=== PATIENT | male | born 1950 | race Caucasian/White ===

== ENCOUNTER 2016-10-14 07:37 | Inpatient (IN) | payer OTHER, MEDICARE ==
[~2016-10-14] VITALS: Ht 162.6 cm; Wt 77.9 kg
[~2016-10-14 07:37] MED LIST: ASPI81 PO; BACT800T5 PO; CLEO300C2 PO; ENAL20TA81 PO; LANTUSP SQ; METF-324 PO; METO50TA PO; NOVOLOGP2 SQ; ZOCO40TA PO; ZOLP10TA3 OR
[2016-10-14] MEDS ORDERED: NS 1000P @30 MLS/HR (KVO) IV SCH (08:00)
[2016-10-14] MEDS ORDERED: PANT40TA3 PO (08:13)
[2016-10-14] MEDS ORDERED: ZOLP10TA3 PO (08:13)
[2016-10-14] MEDS ORDERED: ENAL20TA PO (08:13)
[2016-10-14] MEDS ORDERED: SITA50TA4 PO (08:13)
[2016-10-14] MEDS ORDERED: NOVOLOGP2 SQ (08:13)
[2016-10-14] MEDS ORDERED: EMPA1TAB3 PO (08:13)
[2016-10-14] MEDS ORDERED: HYDR12.57 PO (08:13)
[2016-10-14] MEDS ORDERED: ASPI81TA81 (08:13)
[2016-10-14] MEDS ORDERED: ROSU1TAB10 PO (08:13)
[2016-10-14] MEDS ORDERED: METO100T PO (08:13)
[2016-10-14] MEDS ORDERED: CELE200C PO (08:13)
[2016-10-14] MEDS ORDERED: LANTUS2P SQ (08:13)
[2016-10-14 08:14] VITALS: BP 152/103; PULSE 103; RESP 18; TEMP 98.2; O2SAT 99
[2016-10-14 08:28] LABS: AUTOMATED NEUTROPHIL # 8.5 TH/MM3 (1.8-7.7); BASOPHIL % 0.2 % (0.0-2.0); EOSINOPHIL # 0.2 TH/MM3 (0-0.4); EOSINOPHIL % 1.3 % (0.0-4.0); HEMATOCRIT 39.6 % (39.0-51.0); HEMO FLAGS DIFF FINAL; LYMPHOCYTE # 1.7 TH/MM3 (1.0-4.8); MEAN CELL VOLUME 85.8 FL (80.0-100.0); MEAN CORPUSCULAR HEMOGLOBIN 28.4 PG (27.0-34.0); MEAN CORPUSCULAR HGB CONC 33.1 % (32.0-36.0); MONO % 9.9 % (0.0-8.0); NEUT % 73.6 % (16.0-70.0); PLATELET COUNT 254 TH/MM3 (150-450); RED BLOOD COUNT 4.62 MIL/MM3 (4.50-5.90); WHITE BLOOD COUNT 11.6 TH/MM3 (4.0-11.0)
[2016-10-14 08:35] LABS: APTT (PATIENT) 28.1 SEC (24.3-30.1); INTERNATIONAL NORMALIZED RATIO 0.9 RATIO; PROTHROMBIN TIME - PATIENT 10.4 SEC (9.8-11.6)
[2016-10-14 08:41] LABS: BICARBONATE 33.3 MEQ/L (21.0-32.0); POTASSIUM 4.1 MEQ/L (3.5-5.1)
[2016-10-14] MEDS ORDERED: HEPARIN-NS/PF INJ 500 ML ONE (09:02)
[2016-10-14] MEDS ORDERED: MIDAZOLAM HCL 2 MG/2 ML VIAL ONE (09:03)
[2016-10-14] MEDS ORDERED: HEPARIN SODIUM - IV 10,000 UNITS/10 ML VIAL ONE (09:04)
[2016-10-14] MEDS ORDERED: NITROGLYCERIN INJ 5 ML ONE (09:04)
[2016-10-14] MEDS ORDERED: VERAPAMIL HCL 5 MG/2 ML VIAL ONE (09:04)
[2016-10-14] MEDS ORDERED: MIDAZOLAM HCL 2 MG/2 ML VIAL IV ONE (09:26)
[2016-10-14] MEDS ORDERED: PHENYLEPHRINE HCL 10 MG/ML VIAL ONE ×2 (09:32)
[2016-10-14] MEDS ORDERED: PHENYLEPH/NS 1000 MCG/10 ML SYR ONE (09:32)
[2016-10-14] MEDS ORDERED: PHENYLEPH/NS 1000 MCG/10 ML SYR IVP ONE (09:33)
[2016-10-14] MEDS ORDERED: ONDANSETRON HCL 4 MG/2 ML VIAL ONE (09:36)
[2016-10-14] MEDS ORDERED: ONDANSETRON HCL 4 MG/2 ML VIAL IV PUSH ONE (09:37)
[2016-10-14] MEDS ORDERED: HEPARIN-D5W INJ 250 ML ONE (09:51)
[2016-10-14] MEDS: SODIUM CHLOR 0.9% 1000 ML INJ 1,000 ML IV SCH ×2 (10:06→20:06)
[2016-10-14] MEDS ORDERED: MISC INFORMATION XX ONE (10:15)
[2016-10-14] MEDS ORDERED: HEPARIN-D5W INJ 250 ML IV SCH (10:15)
[2016-10-14] MEDS ORDERED: SODIUM CHLORIDE 0.9% FLUSH 10 ML FLUSH IV FLUSH PRN (10:15)
[2016-10-14] MEDS ORDERED: ceFAZolin 2 GM PREMIX 50 ML IV SCH (11:00)
[2016-10-14] MEDS ORDERED: INSULIN REGULAR (IV INFUSION) 100 UNITS in SODIUM CHLORIDE 0.9% INJ 100 ML IV SCH (11:00)
[2016-10-14] MEDS ORDERED: METOPROLOL TARTRATE 25 MG TAB PO SCH (11:00)
[2016-10-14] MEDS ORDERED: PAPAVERINE INJ 60 MG, NITROGLYCERIN INJ 100 MCG, DILTIAZEM INJ 100 MG in SODIUM CHLORID... IRRIGATION SCH (11:00)
[2016-10-14] MEDS ORDERED: CEFAZOLIN INJ 500 MG in SODIUM CHLORIDE 0.9% IRR BTL 500 ML IRRIGATION SCH (11:00)
[2016-10-14] MEDS ORDERED: CHLORHEXIDINE GLUCONATE 4% SOLN 120 ML BTL TOPICAL SCH (11:00)
[2016-10-14] MEDS ORDERED: SODIUM CHLORIDE 0.9% FLUSH 10 ML FLUSH IVF PRN (11:00)
[2016-10-14] MEDS ORDERED: PILL SPLITTER OTHER PRN (11:30)
--- NOTE | 2016-10-14 12:09 | RADRPT ---
EXAM DATE/TIME: 10/14/2016 11:09 [facility] COMPARISON: No previous studies available for comparison. INDICATIONS : Evaluate for pneumonia, pneumothorax or communicable disease. Preop cabg today or tomorrow. MEDICAL HISTORY : Myocardial infarction. SURGICAL HISTORY : Coronary artery stent. ENCOUNTER: Initial ACUITY: 1 day PAIN SCORE: 0/10 LOCATION: Bilateral chest FINDINGS: A single view of the chest demonstrates a lumpy symmetrically aerated. Minimal atelectatic changes ab ove the right hemidiaphragm. Lungs are otherwise clear without effusion. Heart size is normal. Mild d extroscoliosis of the thoracolumbar spine with associated degenerative spurring. CONCLUSION: Minimal atelectatic changes above the right hemidiaphragm. Lungs otherwise clear. Ashu Martin MD on October 14, 2016 at 12:05 Board Certified Radiologist. This report was verified electronically.
--- NOTE | 2016-10-14 12:17 | MH ---
cc: NAKUL MENCHACA JOHN R. D.O. HORENSTEIN,GABRIEL Farnsworth MD DATE OF ADMISSION: 10/14/[address] Kt Nova. 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 Gabriel Gant. REASON FOR ADMISSION Multivessel coronary artery disease. HISTORY OF PRESENT ILLNESS Patricio Beach is a pleasant 66-year-old male who presented to [facility] for elective cardiac catheterization on October 14, 2016. He was originally scheduled to undergo a colonoscopy due to an outpatient hemoccult test being positive. After seeing Dr. Gant it was decided he should undergo pharmacologic nuclear stress testing which showed a moderate area of ischemia in the inferior lateral portion. Because of this he was recommended cardiac catheterization. In speaking to him he originally stated that he had no symptoms but after further questioning it appears that he has heartburn type symptoms related to activity and not to food. It appears this burning goes away with rest and relaxation. During cardiac catheterization he was found to have multivessel disease with significant lesions in his RCA, left main, LAD and diagonal vessels. Because of this he was recommended to be admitted for consideration of CT surgery. Currently he is hemodynamically stable without chest pain or shortness of breath post cardiac catheterization. PAST MEDICAL HISTORY 1. Coronary artery disease. 2. Mild carotid artery stenosis by Doppler (February 2012). 3. Type 2 diabetes mellitus. 4. Hyperlipidemia. 5. Hypertensive heart disease. 6. Chronic kidney disease. 7. Obesity. 8. History of prostate cancer. PAST SURGICAL HISTORY 1. Cardiac catheterization (October 14, 2016) left main 80-90%, proximal LAD 60%, mid-LAD 90%, diagonal 70%, left circ/OM 30%, subtotal RCA with multiple 100% lesions, ramus 50%. 2. Previous cardiac catheterization with two stents placed in the RCA. ALLERGIES NO KNOWN DRUG ALLERGIES. MEDICATIONS 1. Enalapril 20 mg daily. 2. Ambien 10 mg every night for insomnia. 3. Metoprolol tartrate 100 mg b.i.d. 4. Janumet XR mg. 5. Crestor 40 mg daily. 6. NovoLog sliding scale. 7. Lantus 25 units every night. 8. Aspirin 81 mg daily. 9. Celebrex 200 mg b.i.d. 10. Protonix 40 mg daily. 11. Jardiance 25 mg daily. 12. Hydrochlorothiazide 12.5 mg b.i.d. FAMILY HISTORY Known for a history of cerebrovascular accidents and heart disease. He denies premature coronary artery disease or sudden cardiac within the family. SOCIAL HISTORY The patient drinks alcohol socially. He is currently and lives with his and stepson. Previously used tobacco but denies recent tobacco abuse. REVIEW OF SYSTEMS 14-systems were reviewed including osteopathic, pertinent positives and negatives above, otherwise negative. PHYSICAL EXAMINATION VITAL SIGNS: Temperature 98.2, heart rate 78, blood pressure 142/75, respirations 18, pulse ox 99% on room air. GENERAL: In general the patient appears well, in no acute distress, alert, awake and oriented x3. HEENT: Extraocular muscles intact. Mucous membranes moist. NECK: Neck is supple. No JVD at 45 degrees. No carotid bruits heard bilaterally. Carotid upstroke is brisk in nature. HEART: Heart is regular rate and rhythm. Positive first and second heart sounds with a 1/6 crescendo-decrescendo murmur to the right sternal border. LUNGS: Clear to auscultation bilaterally. No wheezes, rales or rhonchi. ABDOMEN: Soft, nontender, nondistended. No organomegaly noted. EXTREMITIES: Show no clubbing, cyanosis or edema. Right radial currently has TR band around it with no hematoma. NEUROLOGIC: No focal deficits. SKIN: Warm, dry and intact. OSTEOPATHIC: No kyphoscoliosis, lordosis or paraspinal tender points. LABORATORY FINDINGS Hemoglobin 13.1, hematocrit 39.6, platelets 254. INR 0.9. Potassium 4.1, BUN 22, creatinine 1.82. ECHOCARDIOGRAM Echocardiogram (September 18, 2016) ejection fraction 60%, mild concentric LVH, stage I diastolic dysfunction. Aortic valve mildly calcified (peak gradient 24, mean gradient 14). Trace mitral regurgitation. IMPRESSION 1. Multivessel coronary artery disease as above. 2. Ejection fraction 60%, mild aortic stenosis (peak gradient 24, mean gradient 14) by echocardiogram (September 18, 2016). 3. Chronic kidney disease. 4. Mild carotid artery disease by Doppler (February 2012). 5. Type 2 diabetes mellitus. 6. Hyperlipidemia. 7. Hypertensive heart disease. 8. Obesity. 9. History of prostate cancer. RECOMMENDATIONS 1. Mr. Beach appears to have multivessel coronary artery disease with significant left main disease. Because of this he was recommended for CT surgery. 2. I spoke to Patricia from CT surgery and consideration will be made for possibly today versus tomorrow for surgery based on his current workup. 3. Balloon pump was not placed as he is currently hemodynamically stable with no chest pain or shortness of breath. At anytime before surgery, if this does change, consideration could be made for placing balloon pump preoperatively. 4. He will have his Janumet, Enalapril and Celebrex held presurgical. As far as his Janumet goes this may need to be changed due to being on metformin with his creatinine above 1.5 but that will be for the primary care team. 5. We will place him on metoprolol tartrate but at a lower dose as we do not want him to be hypotensive before surgery. 6. Further recommendations will be made based on hospital course. Thank you for allowing me to see Patricio Beach, if there are any questions, please do not hesitate to call. Nakul Menchaca DO VGP/TLL /11:30 AM /11:51 AM
[2016-10-14] MEDS ORDERED: IOHEXOL 350 MG/ML 100 ML BTL (for Cath Lab) OTHER ONE (12:42)
--- NOTE | 2016-10-14 13:40 | MA ---
cc: NAKUL MENCHACA JOHN R. D.O. HORENSTEIN,GABRIEL Farnsworth MD DATE: October 14, [address] Kt Nova. PRIMARY ORNAMENTAL METALWORK DESIGNER Dr. Gabriel Gant. PROCEDURE Left heart catheterization, coronary angiogram, moderate sedation 15 minutes. PREPROCEDURE DIAGNOSIS Atypical chest pain, abnormal stress test. POSTPROCEDURE DIAGNOSIS Multivessel coronary artery disease for consideration of coronary artery bypass grafting. CONTRAST USED 50 ccs. FLUOROSCOPY 3.7 minutes. SEDATION Moderate sedation for 15 minutes. PROCEDURAL SUMMARY Patricio Beach is a pleasant 66-year-old male who underwent pharmacologic nuclear stress test in the outpatient setting for preoperative clearance for colonoscopy. During this he was found to have inferolateral moderate-sized defect and recommended cardiac catheterization. In speaking to him he states that he has heartburn with activity that goes away with rest, which is felt to be his anginal equivalent. Risks, benefits and alternatives were explained to him and he consented as such. He was brought to the cardiac catheterization lab and prepped in the usual sterile fashion. Right radial artery was accessed using a modified Seldinger technique and placement of a 5/6 slender sheath. This was easily aspirated and flushed. A JR-4 was then advanced to the ascending aortic root over a J-wire. At this time the patient stated that he started feeling nauseous and forging die sinker sensation. JR-4 was used to cross the aortic valve and left ventricular pressures were found to be systolically 60 with an LVEDP of 11. This was pulled back across the aortic valve showing no significant gradient of aortic stenosis. Mr. Beach was noted to be hypotensive and nauseous. He was given 50 of meredith for which his blood pressure responded but at that time he had an episode of emesis. After this his blood pressure was 100/60 and he felt better. JR-4 was used for selective angiography of the right coronary artery which shows subtotal occlusion with multiple lesions throughout the mid and distal portions within his previous stents. JR-4 was then exchanged for a JL-3.5 which was used for selective angiography of the left coronary system. Left main is normal in size and tapers distally to an 80-90% lesion right before it trifurcates into the LAD, ramus and left circumflex. The LAD proximally has a 50-60% lesion with the midportion having a 90% lesion at the takeoff of the first diagonal. Distally it appears to have good runoff. The first diagonal has a 70% lesion in the proximal portion. The ramus is a normal-appearing vessel with a 60% lesion in the proximal portion. The left circumflex is a normal-appearing vessel with 30% lesion in the proximal to midportion. The left coronary system does supply etgt-yo-swrue collaterals for the PDA. At this point the JL-3.5 was removed over a J-wire. I did discuss the case at this time with Patricia from CT surgery and it was felt that he could undergo coronary artery bypass grafting either today or tomorrow as he has not had further antiplatelets other than aspirin. At this time it was felt that he was hemodynamically stable with a blood pressure systolically of 120-140, no chest pain or shortness of breath. So decision was made not to place a intraaortic balloon pump. Mr. Beach left the computer lab aide cardiovascularly stable. IMPRESSION 1. Multivessel coronary artery disease as above for possible coronary artery bypass grafting. 2. Angina with exertion. 3. Abnormal pharmacologic nuclear stress test. 4. Preoperative risk assessment for possible colonoscopy. 5. Chronic kidney disease. RECOMMENDATIONS 1. Mr. Beach has significant multivessel coronary artery disease and due to this will plan on possible coronary artery bypass grafting. Case was discussed with Patricia from cardiothoracic surgery who will start the workup for possible CABG. 2. He does have significant left main disease and if at any time he starts to have chest pain or becomes hemodynamically unstable then further left ventricular support should be placed. 3. He will be placed on a heparin drip due to his significant coronary artery disease. 4. Further recommendations will be made based on the hospital course. Thank you for allowing me to see Patricio Beach, if there are any questions, please do not hesitate to call. Nakul Menchaca DO VGP/TLL /12:59 PM /1:20 PM
--- NOTE | 2016-10-14 14:17 | RADRPT ---
EXAM DATE/TIME: 10/14/2016 12:55 [facility] COMPARISON: No previous studies available for comparison. INDICATIONS : Pre Op cardiac surgery. MEDICAL HISTORY : Hypercholesterolemia. Chronic obstructive pulmonary disease. Myocardial infarction. Hypertension. Julia betes. Prostate cancer. SURGICAL HISTORY : Coronary artery stent. Vasectomy. ENCOUNTER: Initial ACUITY: 1 day PAIN SCORE: 0/10 LOCATION: Bilateral neck PEAK SYSTOLIC VELOCITIES (cm/sec): ICA/CCA RATIO: Right: 1.0 Left: 0.6 ICA: Right: 98 Left: 75 CCA: Right: 102 Left: 119 ECA: Right: 76 Left: 194 VERTEBRAL: Right: 53 antegrade Left: 56 antegrade Elevated flow velocities and ICA/CCA ratios have been found to correlate with increased degrees of vessel stenosis, calculated as percentage of diameter relative to a normal segment of distal ICA/CCA FINDINGS: RIGHT CAROTID: Dense atherosclerotic plaquing throughout the right carotid system. The waveforms are within normal limits. LEFT CAROTID: Dense atherosclerotic plaquing throughout the left carotid system, most severe in the distal common. The waveforms are within normal limits. VERTEBRAL ARTERIES: Antegrade flow is seen in both vertebral arteries. MISCELLANEOUS: None. CONCLUSION: 1. Dense atherosclerotic plaquing throughout both carotid systems. 2. This is most severe in the distal left common carotid artery were velocities approach 150 cm/s. Th is may be indicative of a moderate stenosis in this region. No significant stenosis identified in the internal carotid arteries. Antegrade flow in both vertebrals. Ashu Martin MD on October 14, 2016 at 14:11 Board Certified Radiologist. This report was verified electronically.
--- NOTE | 2016-10-14 15:03 | RADRPT ---
EXAM DATE/TIME: 10/14/2016 13:11 [facility] COMPARISON: US CAROTID ARTERIES, October 14, 2016, 12:55. INDICATIONS : Pre Op cardiac surgery. MEDICAL HISTORY : Hypercholesterolemia. Chronic obstructive pulmonary disease. Myocardial infarction. Hypertension. Julia betes. Prostate cancer. SURGICAL HISTORY : Coronary artery stent. Vasectomy. ENCOUNTER: Initial ACUITY: 1 day PAIN SCORE: 0/10 LOCATION: Bilateral legs. TECHNIQUE: Venous ultrasound of the left and right leg was performed from the inguinal ligament to the proximal calf. Real-time, color Doppler and spectral tracing, compression and augmentation techniques were us ed. FINDINGS: RIGHT LEG: There is normal compressibility of the deep venous system from the inguinal region to the proximal ca lf. No echogenic clot is seen in the lumen of the common femoral, femoral, popliteal, and posterior tibial veins. There is a normal response of the venous system to proximal and distal augmentation an d respiration. LEFT LEG: There is normal compressibility of the deep venous system from the inguinal region to the proximal ca lf. No echogenic clot is seen in the lumen of the common femoral, femoral, popliteal, and posterior tibial veins. There is a normal response of the venous system to proximal and distal augmentation an d respiration. CONCLUSION: 1. No DVT identified. Jamari Camejo MD on October 14, 2016 at 15:00 Board Certified Radiologist. This report was verified electronically.
--- NOTE | 2016-10-14 15:12 | PD.CAR.PN ---
CVT Progress Note Subjective/Hospital Course: sts data discussed with pt RISK SCORES About the STS Risk Calculator Procedure: CAB Only Risk of Mortality: 1.829% Morbidity or Mortality: 19.801% Long Length of Stay: 7.82% Short Length of Stay: 35.958% Permanent Stroke: 1.302% Prolonged Ventilation: 11.088% DSW Infection: 0.777% Renal Failure: 8.856% Reoperation: 6.46% Objective: Vital Signs Date Time Temp Pulse Resp B/P Pulse Ox O2 Delivery O2 Flow Rate FiO2 10/14/16 10:21 99 10/14/16 08:14 98.2 103 18 152/103 99 Labs: Laboratory Tests Test 10/14/16 08:05 White Blood Count 11.6 TH/MM3 (4.0-11.0) Red Blood Count 4.62 MIL/MM3 (4.50-5.90) Hemoglobin 13.1 GM/DL (13.0-17.0) Hematocrit 39.6 % (39.0-51.0) Mean Corpuscular Volume 85.8 FL (80.0-100.0) Mean Corpuscular Hemoglobin 28.4 PG (27.0-34.0) Mean Corpuscular Hemoglobin 33.1 % Concent (32.0-36.0) Red Cell Distribution Width 15.0 % (11.6-17.2) Platelet Count 254 TH/MM3 (150-450) Mean Platelet Volume 8.2 FL (7.0-11.0) Neutrophils (%) (Auto) 73.6 % (16.0-70.0) Lymphocytes (%) (Auto) 15.0 % (9.0-44.0) Monocytes (%) (Auto) 9.9 % (0.0-8.0) Eosinophils (%) (Auto) 1.3 % (0.0-4.0) Basophils (%) (Auto) 0.2 % (0.0-2.0) Neutrophils # (Auto) 8.5 TH/MM3 (1.8-7.7) Lymphocytes # (Auto) 1.7 TH/MM3 (1.0-4.8) Monocytes # (Auto) 1.2 TH/MM3 (0-0.9) Eosinophils # (Auto) 0.2 TH/MM3 (0-0.4) Basophils # (Auto) 0.0 TH/MM3 (0-0.2) CBC Comment DIFF FINAL Differential Comment Prothrombin Time 10.4 SEC (9.8-11.6) Prothromb Time International 0.9 RATIO Ratio Activated Partial 28.1 SEC Thromboplast Time (24.3-30.1) Sodium Level 141 MEQ/L (136-145) Potassium Level 4.1 MEQ/L (3.5-5.1) Chloride Level 101 MEQ/L (98-107) Carbon Dioxide Level 33.3 MEQ/L (21.0-32.0) Anion Gap 7 MEQ/L (5-15) Blood Urea Nitrogen 22 MG/DL (7-18) Creatinine 1.82 MG/DL (0.60-1.30) Estimat Glomerular Filtration 37 ML/MIN (>89) Rate Random Glucose 165 MG/DL (74-106) Calcium Level 9.0 MG/DL (8.5-10.1) Result Diagram: 10/14/16 0805 10/14/16 0805 Maira Valverde Oct 14, 2016 15:12
[2016-10-14 15:39] VITALS: PULSE 86
[2016-10-14 16:00] VITALS: BP 128/68; PULSE 103; RESP 18; TEMP 98; O2SAT 99
--- NOTE | 2016-10-14 16:00 | RADRPT ---
EXAM DATE/TIME: 10/14/2016 13:17 [facility] COMPARISON: No previous studies available for comparison. INDICATIONS : Pre Op cardiac surgery. MEDICAL HISTORY : Hypercholesterolemia. Chronic obstructive pulmonary disease. Myocardial infarction. Hypertension. Julia betes. Prostate cancer. SURGICAL HISTORY : Coronary artery stent. Vascetomy. ENCOUNTER: Initial ACUITY: 1 day PAIN SCORE: 0/10 LOCATION: Bilateral legs. GREATER SAPHENOUS VEIN THIGH: PROXIMAL: Right 4 mm Left 5 mm MID: Right 2 mm Left 2 mm DISTAL: Right Non-visualized Left 2 mm CALF: PROXIMAL: Right Non-visualized Left Non-visualized MID: Right Non-visualized Left Non-visualized DISTAL: Right Non-visualized Left Non-visualized FINDINGS: The venous system of the lower extremities are patent by color Doppler imaging. Measurements of the leg veins (in mm) are listed above. CONCLUSION: 1. Greater saphenous vein below the knee are extremely diminutive and difficult to follow. 2. Above the knee, the right greater saphenous measures 2-4 mm but could not be seen just above the k nee joint. 3. On the left, greater saphenous measures between 2-5 mm above the knee. Ashu Martin MD on October 14, 2016 at 15:57 Board Certified Radiologist. This report was verified electronically.
[2016-10-14] MEDS ORDERED: HEPARIN SODIUM - IV 10,000 UNITS/10 ML VIAL IV PRN ×2 (16:15)
[2016-10-14] MEDS ORDERED: NITROGLYCERIN 1000 MCG/5 ML VIAL OTHER ONE (16:30)
[2016-10-14] MEDS ORDERED: VERAPAMIL HCL 5 MG/2 ML VIAL OTHER ONE (16:30)
[2016-10-14] MEDS ORDERED: HEPARIN SODIUM - IV 10,000 UNITS/10 ML VIAL OTHER ONE (16:30)
[2016-10-14 17:00] LABS: HEMATOCRIT 37.5 % (39.0-51.0); MEAN CELL VOLUME 86.1 FL (80.0-100.0); MEAN CORPUSCULAR HEMOGLOBIN 27.9 PG (27.0-34.0); MEAN CORPUSCULAR HGB CONC 32.4 % (32.0-36.0); PLATELET COUNT 219 TH/MM3 (150-450); RED BLOOD COUNT 4.35 MIL/MM3 (4.50-5.90); RED CELL DISTRIBUTION WIDTH 14.7 % (11.6-17.2); REVIEW FLAG FINAL; WHITE BLOOD COUNT 10.5 TH/MM3 (4.0-11.0)
[2016-10-14 17:10] LABS: APTT (PATIENT) 37.9 SEC (24.3-30.1)
[2016-10-14 17:11] LABS: HEMOGLOBIN A1a 1.6 %; HEMOGLOBIN A1b 2.6 %; HEMOGLOBIN LA1C 2.6 %
[2016-10-14] MEDS: ALPRAZolam 0.25 MG TAB PO PRN (18:15)
[2016-10-14 19:00] VITALS: BP 141/84; PULSE 96; RESP 18; TEMP 98.2; O2SAT 93
[2016-10-14 19:17] LABS: BLOOD, URINE NEG (NEG); COMMENT (UR) CULT NOT INDICATED; CULTURE IF INDICATED CULT NOT INDICATED; GLUCOSE,URINE 1000 mg/dL (NEG); KETONE, URINE NEG (NEG); MUCUS URINE FEW /lpf (OCC); NITRITE,URINE NEG (NEG); PH, URINE 5.5 (5.0-8.5); URINE COLOR LIGHT-YELLOW (YELLW/STRAW)
[2016-10-14] MEDS: SODIUM CHLORIDE 0.9% FLUSH 10 ML FLUSH IV FLUSH SCH (21:00)
[2016-10-14] MEDS ORDERED: SODIUM CHLORIDE 0.9% FLUSH 10 ML FLUSH IVF SCH (21:00)
[2016-10-14] MEDS ORDERED: INSULIN DETEMIR 100 UNITS/ML VIAL SQ SCH (21:00)
[2016-10-14] MEDS: METOPROLOL TARTRATE 25 MG TAB PO SCH (22:11)
[2016-10-14 23:00] VITALS: BP 142/79; PULSE 83; RESP 18; TEMP 97.9; O2SAT 96
[2016-10-15] VITALS (10 sets, daily range): BP systolic 130–160; BP diastolic 65–87; PULSE 86–111; RESP 12–18; TEMP 97.7–98.3; O2SAT 91–98
[2016-10-15] MEDS: ALPRAZolam 0.25 MG TAB PO PRN ×2 (01:00→08:08)
[2016-10-15 03:42] LABS: AUTOMATED NEUTROPHIL # 9.1 TH/MM3 (1.8-7.7); BASOPHIL # 0.1 TH/MM3 (0-0.2); BASOPHIL % 0.5 % (0.0-2.0); EOSINOPHIL # 0.1 TH/MM3 (0-0.4); EOSINOPHIL % 1.2 % (0.0-4.0); HEMATOCRIT 35.9 % (39.0-51.0); HEMO FLAGS DIFF FINAL; LYMPH % 15.2 % (9.0-44.0); LYMPHOCYTE # 1.9 TH/MM3 (1.0-4.8); MEAN CELL VOLUME 85.6 FL (80.0-100.0); MEAN CORPUSCULAR HEMOGLOBIN 28.3 PG (27.0-34.0); MEAN CORPUSCULAR HGB CONC 33.1 % (32.0-36.0); MONO % 9.2 % (0.0-8.0); NEUT % 73.9 % (16.0-70.0); PLATELET COUNT 226 TH/MM3 (150-450); RED BLOOD COUNT 4.19 MIL/MM3 (4.50-5.90); RED CELL DISTRIBUTION WIDTH 15.4 % (11.6-17.2); WHITE BLOOD COUNT 12.3 TH/MM3 (4.0-11.0)
[2016-10-15 04:05] LABS: BICARBONATE 30.1 MEQ/L (21.0-32.0); POTASSIUM 3.9 MEQ/L (3.5-5.1)
[2016-10-15] MEDS ORDERED: PROTAMINE SULFATE 250 MG/25 ML VIAL IV ONE (05:00)
[2016-10-15] MEDS ORDERED: HEPARIN SODIUM - SQ 10,000 UNITS/ML VIAL SQ ONE (05:00)
[2016-10-15] MEDS ORDERED: ceFAZolin 2 GM PREMIX 50 ML IV ONE (05:00)
[2016-10-15] MEDS ORDERED: NITROGLYCERIN-DEXTROSE INJ 250 ML IV ONE (05:00)
[2016-10-15] MEDS ORDERED: DEXMEDETOMIDINE INJ 50 ML IV ONE (05:00)
[2016-10-15] MEDS ORDERED: DEXTROSE 5% IN WATER 100ML INJ 100 ML IV ONE (05:00)
[2016-10-15] MEDS ORDERED: EPINEPHrine HCL (1:1000) 1 MG/ML VIAL IV ONE (05:00)
[2016-10-15] MEDS ORDERED: PHENYLEPHRINE HCL 10 MG/ML VIAL IV ONE (05:00)
[2016-10-15] MEDS ORDERED: PROPOFOL 1000 MG/100 ML INJ 100 ML IV ONE (05:00)
[2016-10-15] MEDS ORDERED: DOPamine INJ PREMIX 500 ML IV ONE (05:00)
[2016-10-15] MEDS ORDERED: MAGNESIUM SULFATE 1000 MG/2 ML VIAL (PED) IV ONE (05:00)
[2016-10-15] MEDS ORDERED: HEPARIN SODIUM - SQ 10,000 UNITS/ML VIAL ONE (07:34)
[2016-10-15] MEDS ORDERED: VANCOMYCIN HCL 1000 MG VIAL ONE (07:34)
[2016-10-15] MEDS ORDERED: methylPREDNISolone SOD SUCC 125 MG/2 ML VIAL ONE (07:34)
[2016-10-15] MEDS ORDERED: CARDIOPLEGIC IRR 1,000 ML ONE (07:54)
[2016-10-15] MEDS ORDERED: MANNITOL INJ 50 ML ONE (07:54)
[2016-10-15] MEDS ORDERED: SODIUM BICARBONATE 8.4% INJ 50 ML ONE (07:54)
[2016-10-15] MEDS ORDERED: POTASSIUM CHLORIDE 20 MEQ/10 ML VIAL ONE (07:55)
[2016-10-15] MEDS ORDERED: ALBUMIN HUMAN 25% 12.5 GM/50 ML BAGP IV ONE (07:55)
[2016-10-15] MEDS ORDERED: CALCIUM CHLORIDE 10% SOLN 1 GRAM/10 ML SYR ONE (07:56)
[2016-10-15] MEDS: METOPROLOL TARTRATE 25 MG TAB PO SCH (08:10)
--- NOTE | 2016-10-15 08:28 | EKG ---
Date Performed: 10/14/2016 Time Performed: 08:11:50 PTAGE: 66 years EKG: Sinus rhythm Left axis deviation Inferior infarct - age undetermined Abnormal ECG PREVIOUS TRACING : 01/15/2012 15.29 DOCTOR: Jean Carlos Calhoun Interpretating Date/Time 10/15/2016 08:25:45
[2016-10-15] MEDS: ATORVASTATIN 80 MG TAB PO SCH (09:00)
[2016-10-15] MEDS: SODIUM CHLORIDE 0.9% FLUSH 10 ML FLUSH IV FLUSH SCH ×2 (09:00→21:00)
[2016-10-15] MEDS ORDERED: PANTOPRAZOLE SOD 40 MG DELAYED RELEASE TAB PO SCH (09:00)
[2016-10-15] MEDS ORDERED: NON-FORMULARY DRUG (Sitagliptin-Metformin ER (Janumet Xr) 1 TAB) PO SCH (09:00)
[2016-10-15] MEDS: PATIENT OWN MEDICATION PO SCH (09:00)
[2016-10-15] MEDS ORDERED: ASPIRIN EC 81 MG TABEC PO SCH (09:00)
--- NOTE | 2016-10-15 09:03 | PD.CARD.PN ---
Subjective Subjective Remarks No chest pain, no shortness of breath, anxious For CABG this morning Objective Medications Current Medications Medications (Trade) Dose Ordered Sig/Phoebe Route Start Time Stop Time Status Last Admin (Heparin Inj) 5,000 units UNSCH PRN IV 10/14/16 16:15 Heparin Sodium (Porcine) 2500 units 2,500 units UNSCH PRN IV 10/14/16 16:15 (Heparin-D5W Inj) 250 ml @ 0 mls/hr TITRATE IV 10/14/16 10:15 (NS Flush) 2 ml BID IV FLUSH 10/14/16 21:00 10/14/16 21:00 (NS Flush) 2 ml UNSCH PRN IV FLUSH 10/14/16 10:15 (Ecotrin Ec) 81 mg DAILY PO 10/15/16 09:00 (Levemir Inj) 25 units HS SQ 10/14/16 21:00 10/14/16 21:00 (Protonix) 40 mg DAILY PO 10/15/16 09:00 Patient Own Medication PT OWN MED: (Empagliflozin (Jardian... DAILY PO 10/15/16 09:00 (Lipitor) 80 mg DAILY PO 10/15/16 09:00 (Lopressor) 12.5 mg Q12HR PO 10/14/16 21:00 10/15/16 08:10 (Pill Splitter) 1 ea UNSCH PRN OTHER 10/14/16 11:30 (Xanax) 0.25 mg Q8H PRN PO 10/14/16 16:00 10/15/16 08:08 Vital Signs / I&O Vital Signs Date Time Temp Pulse Resp B/P Pulse Ox O2 Delivery O2 Flow Rate FiO2 10/15/16 07:00 97.7 94 17 140/83 93 10/15/16 07:00 94 10/15/16 03:00 98.3 86 18 130/72 94 10/15/16 03:00 86 10/14/16 23:00 97.9 83 18 142/79 96 10/14/16 23:00 83 10/14/16 19:00 96 10/14/16 19:00 98.2 96 18 141/84 93 10/14/16 16:00 98.0 103 18 128/68 99 10/14/16 15:39 86 3/22/17 10:21 99 I/O 10/14/16 10/14/16 10/14/16 10/15/16 10/15/16 10/15/16 07:00 15:00 23:00 07:00 15:00 23:00 Intake Total 240 ml 810 ml 940 ml Output Total 150 ml 350 ml 1350 ml Balance 90 ml 460 ml -410 ml Intake Oral 240 ml 480 ml 420 ml IV Total 330 ml 520 ml Output Urine Total 150 ml 350 ml 1350 ml # Bowel Movements 0 1 Physical Exam GENERAL: NAD, AAOx3 SKIN: Warm and dry. HEAD: Atraumatic. Normocephalic. EYES: Pupils equal and round. No scleral icterus. No injection or drainage. ENT: No nasal bleeding or discharge. Mucous membranes pink and moist. NECK: Trachea midline. No JVD. CARDIOVASCULAR: Regular rate and rhythm. No murmurs noted RESPIRATORY: No accessory muscle use. Clear to auscultation. Breath sounds equal bilaterally. GASTROINTESTINAL: Abdomen soft, non-tender, nondistended. Hepatic and splenic margins not palpable. MUSCULOSKELETAL: Extremities without clubbing, cyanosis, or edema. No obvious deformities. NEUROLOGICAL: Awake and alert. No obvious cranial nerve deficits. Motor grossly within normal limits. Five out of 5 muscle strength in the arms and legs. Normal speech. PSYCHIATRIC: Appropriate mood and affect; insight and judgment normal. Laboratory Laboratory Tests Test 10/14/16 10/14/16 10/14/16 10/14/16 14:00 16:50 17:55 18:11 Blood Type O POSITIVE Antibody Screen NEGATIVE Crossmatch Leukocyte-Reduced Red Blood Cells Blood Bank Comment White Blood Count 10.5 TH/MM3 Red Blood Count 4.35 MIL/MM3 Hemoglobin 12.1 GM/DL Hematocrit 37.5 % Mean Corpuscular Volume 86.1 FL Mean Corpuscular Hemoglobin 27.9 PG Mean Corpuscular Hemoglobin 32.4 % Concent Red Cell Distribution Width 14.7 % Platelet Count 219 TH/MM3 Mean Platelet Volume 8.1 FL Activated Partial 37.9 SEC Thromboplast Time Urine Color LIGHT-YELLOW Urine Turbidity CLEAR Urine pH 5.5 Urine Specific [place] 1.031 Urine Protein NEG mg/dL Urine Glucose (UA) 1000 mg/dL Urine Ketones NEG mg/dL Urine Occult Blood NEG Urine Nitrite NEG Urine Bilirubin NEG Urine Urobilinogen LESS THAN 2.0 MG/DL Urine Leukocyte Esterase NEG Urine RBC 2 /hpf Urine WBC 1 /hpf Urine Mucus FEW /lpf Microscopic Urinalysis Comment CULT NOT INDICATED Nasal Screen MRSA (PCR) NEGATIVE Test 10/15/16 03:28 White Blood Count 12.3 TH/MM3 Red Blood Count 4.19 MIL/MM3 Hemoglobin 11.9 GM/DL Hematocrit 35.9 % Mean Corpuscular Volume 85.6 FL Mean Corpuscular Hemoglobin 28.3 PG Mean Corpuscular Hemoglobin 33.1 % Concent Red Cell Distribution Width 15.4 % Platelet Count 226 TH/MM3 Mean Platelet Volume 8.1 FL Neutrophils (%) (Auto) 73.9 % Lymphocytes (%) (Auto) 15.2 % Monocytes (%) (Auto) 9.2 % Eosinophils (%) (Auto) 1.2 % Basophils (%) (Auto) 0.5 % Neutrophils # (Auto) 9.1 TH/MM3 Lymphocytes # (Auto) 1.9 TH/MM3 Monocytes # (Auto) 1.1 TH/MM3 Eosinophils # (Auto) 0.1 TH/MM3 Basophils # (Auto) 0.1 TH/MM3 CBC Comment DIFF FINAL Differential Comment Sodium Level 143 MEQ/L Potassium Level 3.9 MEQ/L Chloride Level 105 MEQ/L Carbon Dioxide Level 30.1 MEQ/L Anion Gap 8 MEQ/L Blood Urea Nitrogen 23 MG/DL Creatinine 1.57 MG/DL Estimat Glomerular Filtration 44 ML/MIN Rate Random Glucose 151 MG/DL Calcium Level 8.9 MG/DL Assessment and Plan Problem List: (1) Multi-vessel coronary artery stenosis (2) CAD (coronary artery disease) (3) HTN (hypertension) (4) DM (diabetes mellitus) (5) HLD (hyperlipidemia) (6) CKD (chronic kidney disease) (7) Anxiety Assessment and Plan 1) MVCAD with Left Main disease, for CABG today 2) Heparin drip off in anticipation of CABG today 3) Jantoniat held post cath, creatinine somewhat better, will have to see what his baseline is before restarting 4) Would avoid Celebrex long term care phlebotomist with ischemic heart disease 5) Will follow post-op Nakul Valera DO Oct 15, 2016 09:03
--- NOTE | 2016-10-15 09:12 | MB ---
cc: MAREN KNAPP MD DATE OF CONSULTATION: 10/14/2016 1948 HISTORY OF PRESENT ILLNESS A 66-year-old male, a patient of Dr. Kt Nova, Dr. Gant, that apparently was supposed to undergo colonoscopy, he had an outpatient, one of three heme tests was positive and needed to have cardiac clearance for his colonoscopy. He denied ever having any bloody stools, no dark tarry stools. He was to see Dr. Powell as an outpatient. He underwent exercise stress test which was apparently positive. Stress test showed EF of 45-50% with inferior hypokinesis, inferolateral reversibility. The patient underwent cardiac cath today by Dr. Valera which showed 90% left main, proximal LAD 60%, mid distal LAD 90%, diagonal was 70%, the circ was 30%, the OM was 30%, the RCA was subtotally occluded, the ramus was also 50%. During the course of the cardiac cath he became hypotensive requiring 50 mics of Wilfredo-Synephrine and some IV fluids and his EF was found to be 60%. We were consulted for coronary artery bypass grafting. The patient's blood pressure improved after the Wilfredo-Synephrine and did not require an intra-aortic balloon pump at this point, however, if the patient developed any chest pain or further hemodynamic compromise Dr. Valera was going to place an intra-aortic balloon pump. PAST MEDICAL HISTORY At this time the patient's past medical history is significant for: 1. Carotid artery disease. He had some mild bilateral internal carotid stenosis in 2011, coronary artery disease. He has had two stents placed in the past, once up in [place], one at [facility] by Dr. Sofia, the last one was in 2001. 2. Diabetes mellitus. 3. Hyperlipidemia. 4. Hypertension. 5. Insomnia. 6. Prior history of an [place]. 7. Obesity. 8. Prostate cancer with radiation. 9. Syncope. ALLERGIES No known allergies. MEDICATIONS Home medications include: 1. Aspirin 81. 2. Celebrex 200. 3. Enalapril 20. 4. HCTZ 12.5 p.o. daily. 5. He takes Novolin insulin t.i.d. 6. Victoza. 7. Janumet. 8. Jardiance. 9. Metoprolol. 10. Protonix. 11. Crestor 40. 12. Cari durham. for sleep. FAMILY HISTORY Mother from CHF, history of CVA at age 70. Father complications of valve surgery and he had a pacemaker. SOCIAL HISTORY The patient is , seven children. Four of his sons have history of heart disease. No alcohol. He smoked for 35 years two packs, he quit 25 years ago. REVIEW OF SYSTEMS GENERAL: No night sweats, fever, heat and cold intolerance. SKIN: No psoriasis, itching or hives. HEENT: No blurred vision, hearing loss. RESPIRATORY: No cough or shortness of breath. CARDIOVASCULAR: Denies having any chest pain, has had some heartburn with exertion. GASTROINTESTINAL: Positive for occasional heartburn. No nausea, vomiting, diarrhea. GENITOURINARY: No burning, frequency, urgency. 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 ENDOCRINOLOGY: Positive for diabetes. PHYSICAL EXAMINATION VITAL SIGNS: Blood pressure 150/100, heart rate 100, temperature 98.2. GENERAL: The patient is awake, alert, in no acute distress. HEENT: Head is normocephalic, atraumatic. Pupils equal and reactive. Oral mucosa pink, moist. NECK: Supple. No JVD. HEART: Heart sounds S1-S2, regular rate and rhythm. No rubs, murmurs, gallops. LUNGS: Clear to auscultation. No wheezes or rales or rhonchi. ABDOMEN: Soft, nontender. No masses or organomegaly. EXTREMITIES: No cyanosis, clubbing or edema. LABORATORY FINDINGS Shows hemoglobin 13, hematocrit 39, white cell count of 11, platelet count 254, sodium 141, potassium 4.1, BUN 21, creatinine 1.82, baseline was 1.65, INR 0.9. RADIOLOGICAL EXAMINATION Shows carotid ultrasound: Some dense plaquing throughout the carotid system, left common carotid with velocities approaching 150, showing some moderate lesions, will probably need outpatient followup. Other testing includes a chest x-ray: Some mild atelectasis changes, otherwise unremarkable. Lower extremity ultrasound: No DVT. IMPRESSION This is a 66-year-old male with multivessel disease requiring urgent coronary artery bypass grafting, EF of 60%. Procedures, alternatives and risks will be discussed by Dr. Maren Knapp. STS data will be discussed with the patient and then documented in the electronic record. PLAN Plan will be for coronary artery bypass graft in the a.m. Dictated by: SEBLE Hoffman aMren PAYTON/TLL /3:17 PM /9:09 AM
[2016-10-15] MEDS ORDERED: PROTAMINE SULFATE 50 MG/5 ML VIAL ONE (12:30)
[2016-10-15] MEDS ORDERED: LACTATED RINGER'S 1000 ML INJ 500 ML IV PRN (13:16)
--- NOTE | 2016-10-15 13:29 | PD.OP ---
cc: Rohini Kc MD; Nakul Valera DO Operative Report Date of Surgery: Oct 15, 2016 Preoperative Diagnosis: (1) CAD (coronary artery disease) (2) Multi-vessel coronary artery stenosis (3) Unstable angina Postoperative Diagnosis: none Procedure: Urgent CABG x 3 ROACH to LAD SVG to Ramus SVG to PDA EVH Anesthesia: Dr. Arreaga Surgeon: Rohini Kc [employer] Supervisor(s): Guillermo Herrera Operation and Findings: The risks, benefits, complications, treatment options, and expected outcomes were discussed with the patient. The possibilities of reaction to medication, pulmonary aspiration, perforation of viscus, bleeding, recurrent infection, the need for additional procedures, failure to diagnose a condition, and creating a complication requiring transfusion or operation were discussed with the patient. The patient concurred with the proposed plan, giving informed consent. The site of surgery properly noted/marked. The patient was taken to Operating Room, identified as Pat[place]io [place] and the procedure verified as CABG, EVH, CINTHIA. A Time Out was held and the above information confirmed. Standard monitoring lines and Katz catheter were placed. General anesthesia was induced. The patient was prepped and draped in a sterile fashion. A median sternotomy was performed and electrocautery was used to obtain hemostasis. The left internal mammary artery was procured as a pedicle from the 7th rib to the 1st rib in the usual manner. Simultaneously left greater saphenous vein was procured from the left leg using a minimally invasive endoscopic technique. The vein was prepared for anastomosis and the leg wound was irrigated and closed in 2 layers. The pericardium was opened and a pericardial sling was created using interrupted 0 silk sutures. The patient was heparinized for cardiopulmonary bypass and the distal mammary pedicle was instrumented for anastomosis. The heart was instrumented for cardiopulmonary bypass in the usual manner. Antegrade blood cardioplegia was employed. The patient was placed on cardiopulmonary bypass. An aortic cross-clamp was applied and the heart was arrested using cold blood cardioplegia. Antegrade cardioplegia was administered after he each anastomosis. After adequate arrest, the distal right coronary circulation was investigated and the PDA was opened with a Chemehuevi blade and found to be a 1 millimeter fair target. Saphenous vein was approximated to the PDA artery using a running 7 0 Prolene suture. The graft was measured for length and orientation and the proximal anastomosis was constructed to the ascending aorta using a running 5 0 Prolene suture after creating an aortotomy with a 5 millimeter punch. The ramus intermedius artery was then opened with a Chemehuevi blade and found to be a 1.5 millimeter good target. Saphenous vein was approximated to the RI artery using a running 7 0 Prolene suture. The graft was measured for length and orientation and was suspended from the pericardium. The distal LAD was opened with a Chemehuevi blade and found to be a 1.5 millimeter good target. The left internal mammary artery was approximated to the LAD using a running 7 0 Prolene suture. The pedicle was attached to the epicardium using interrupted 5 0 silk suture. The patient was systemically rewarmed and received a hotshot dose of warm blood cardioplegia. The aorta was vented and the proximal anastomosis to the RI graft was accomplished using a running 5 0 Prolene suture after creating an aortotomy was a 5 millimeter punch. The cross-clamp was removed and all proximal and distal anastomoses were examined for hemostasis. The patient was weaned from cardiopulmonary bypass. Protamine was given. There was no adverse reaction. Decannulation was carried out without incident. Wound was checked for hemostasis which was obtained using electrocautery. A 36 Yi mediastinal and 32 Yi left pleural chest was were placed and secured to the skin with 0 silk suture. The sternum was closed with stainless steel wire. The fascia was closed with 1. PDS. The subcutaneous tissue was closed using a running 2-0 Vicryl suture. The skin was closed with 4-0 Monocryl. Sterile dressings were placed. At the end of the operation, all sponge, instruments, and needle counts were correct. The patient was transferred to the CVICU in stable condition. Findings: The OM was too small to graft XC: 50 min CPB: 57 min Drains: mediastinal x 1 pleural x 1 Complications: none Disposition: to CVICU in stable condition Rohini Kc MD Oct 15, 2016 13:29
[2016-10-15] MEDS ORDERED: ACETAMINOPHEN 325 MG TAB PO PRN (13:30)
[2016-10-15] MEDS ORDERED: MAGNESIUM SULFATE INJ 2 GM in SODIUM CHLORIDE 0.9% INJ 100 ML IV PRN ×4 (13:30)
[2016-10-15] MEDS ORDERED: POTASSIUM CHLORIDE 20 MEQ CONTROLLED RELEASE TAB PO PRN ×2 (13:30)
[2016-10-15] MEDS ORDERED: CALCIUM CHLORIDE 10% 1 GRAM/10 ML VIAL IV PRN (13:30)
[2016-10-15] MEDS ORDERED: Post-op Orders (for Pharmacy) MISC OTHER ONE (13:30)
[2016-10-15] MEDS ORDERED: DEXTROSE 50% IN WATER 50 ML VIAL(D50) IV PUSH PRN (13:30)
[2016-10-15] MEDS ORDERED: SODIUM CHLORIDE 0.9% FLUSH 10 ML FLUSH IV FLUSH PRN (13:30)
[2016-10-15] MEDS ORDERED: CLEVIDIPINE INJ 50 ML IV SCH (13:30)
[2016-10-15] MEDS ORDERED: POTASSIUM CHLOR 20 MEQ PREMIX 100 ML IV PRN ×3 (13:30)
[2016-10-15] MEDS ORDERED: CALCIUM CHLORIDE INJ 1 GM in SODIUM CHLORIDE 0.9% INJ 100 ML IV PRN (13:30)
[2016-10-15] MEDS ORDERED: INSULIN REGULAR (IV INFUSION) 100 UNITS in SODIUM CHLORIDE 0.9% INJ 99 ML IV SCH (13:30)
[2016-10-15] MEDS ORDERED: ACETAMINOPHEN 650 MG SUPP RECTAL PRN (13:30)
[2016-10-15] MEDS ORDERED: ONDANSETRON HCL 4 MG/2 ML VIAL IV PUSH PRN (13:30)
[2016-10-15] MEDS ORDERED: hydrALAZINE HCL 20 MG/ML VIAL IV PRN (13:30)
[2016-10-15] MEDS: ACETAMINOPHEN 1000 MG/100 ML VIAL IV SCH ×2 (14:00→19:36)
[2016-10-15] MEDS ORDERED: fentaNYL CITRATE 1000 MCG/20 ML VIAL ONE (14:11)
[2016-10-15] MEDS ORDERED: MIDAZOLAM HCL 5 MG/5 ML VIAL ONE ×2 (14:11)
[2016-10-15] MEDS ORDERED: RESP: RACEPINEPHRINE 2.25% 0.5 ML NEB NEB PRN (14:30)
[2016-10-15] MEDS ORDERED: RESP: ALBUTEROL 2.5 MG/IPRATROPIUM 0.5 MG NEB (PRN) NEB (14:30)
--- NOTE | 2016-10-15 14:36 | PD.CONS ---
[facility] Service Urology Consult Requested By [facility] Primary Care Physician Kt Nova DO Diagnosis: History of Present Illness 66yo male with history of CAD found to have significant cardiac stenosis now undergoing Cardiac surgery with difficulty in gaines catheter placement in the OR. Patient Intubated and sedated on the OR table. History does not reveal any obvious lower urinary tract symptoms. However it was reported the patient mentioned difficulty in voiding and at times completely unable to urinate. He is not on any medications to help him void. No history of hematuria. Positive history of Prostate cancer, however unclear if treated or any urological surgeries. Review of Systems ROS Limitations: Clinical Condition Constitutional: DENIES: Fever Endocrine: DENIES: Polyuria Ears, nose, mouth, throat: DENIES: Hearing loss Respiratory: DENIES: Apneas Cardiovascular: COMPLAINS OF: Claudication, DENIES: Chest pain Gastrointestinal: DENIES: Abdominal pain Genitourinary: DENIES: Urgency, Hematuria, Dysuria Musculoskeletal: DENIES: Back pain Integumentary: DENIES: Rash Immunologic/allergic: DENIES: Eczema Neurologic: DENIES: Headache Psychiatric: DENIES: Anxiety Except as stated in HPI: all other systems reviewed are Neg Past Family Social History Past Medical History Prostate Cancer DM CAD Past Surgical History Cardiac cath Reported Medications Reported Meds & Active Scripts Active Reported Zolpidem (Zolpidem Tartrate) 10 Mg Tab 10 Mg PO HS PRN Aspir-81 (Aspirin) 81 Mg Tabdr Rosuvastatin (Rosuvastatin Calcium) 40 Mg Tab 40 Mg PO DAILY Pantoprazole (Pantoprazole Sodium) 40 Mg Tab 40 Mg PO DAILY Metoprolol Tartrate 100 Mg Tab 100 Mg PO BID Jardiance (Empagliflozin) 25 Mg Tab 25 Mg PO DAILY Janumet Xr (Sitagliptin-Metformin ER) 50-1,000 Mg Tab 1 Tab PO DAILY Lantus Inj (Insulin Glargine) 100 Unit/Ml Inj 25 Units SQ HS Novolog Inj (Insulin Aspart) 1,000 Unit/10 Ml Vial 0 SQ DIRECTED Sliding Scale as directed. Hydrochlorothiazide 12.5 Mg Cap 12.5 Mg PO BID Enalapril (Enalapril Maleate) 20 Mg Tab 20 Mg PO DAILY Celebrex (Celecoxib) 200 Mg Cap 200 Mg PO BID Allergies: Coded Allergies: No Known Allergies (Verified , 12/14/15) Active Ordered Medications Current Medications Medications (Trade) Dose Ordered Sig/Phoebe Route Start Time Stop Time Status Last Admin (Heparin Inj) 5,000 units UNSCH PRN IV 10/14/16 16:15 Heparin Sodium (Porcine) 2500 units 2,500 units UNSCH PRN IV 10/14/16 16:15 (Heparin-D5W Inj) 250 ml @ 0 mls/hr TITRATE IV 10/14/16 10:15 (Levemir Inj) 25 units HS SQ 10/14/16 21:00 Hold 10/14/16 21:00 Patient Own Medication PT OWN MED: (Empagliflozin (Jardian... DAILY PO 10/15/16 09:00 (Lipitor) 80 mg DAILY PO 10/15/16 09:00 (Pill Splitter) 1 ea UNSCH PRN OTHER 10/14/16 11:30 (NS Flush) 2 ml BID IV FLUSH 10/15/16 21:00 Sodium Chloride 2 ml 2 ml UNSCH PRN IV FLUSH 10/15/16 13:30 Clevidipine 50 ml @ 0 mls/hr TITRATE IV 10/15/16 13:30 Lactated Ringer's 500 ml @ 500 mls/hr Q1H PRN IV 10/15/16 13:16 (Ancef Inj/NS Inj) 100 ml @ 200 mls/hr Q8H IV 10/15/16 15:00 10/16/16 23:29 (Aspirin Chew) 81 mg DAILY PO 10/16/16 09:00 (Protonix) 40 mg DAILY@06 PO 10/16/16 06:00 (Reglan Inj) 10 mg ACHS IV PUSH 10/15/16 16:00 (Cordarone) 200 mg Q12HR PO 10/15/16 21:00 (Tylenol) 650 mg Q4H PRN PO 10/15/16 13:30 (Tylenol Supp) 650 mg Q4H PRN RECTAL 10/15/16 13:30 (Ofirmev Inj) 1,000 mg Q6H IV 10/15/16 14:00 10/16/16 08:01 (Percocet 5-325 Mg) 1 tab Q3H PRN PO 10/15/16 13:30 (fentaNYL INJ) 25 mcg Q1H PRN IV 10/15/16 13:30 (Zofran Inj) 4 mg Q6H PRN IV PUSH 10/15/16 13:30 (Apresoline Inj) 10 mg Q4H PRN IV 10/15/16 13:30 Metoprolol Tartrate 2.5 mg 2.5 mg Q1H PRN IV PUSH 10/15/16 13:30 Potassium Chloride 100 ml @ 50 mls/hr UNSCH PRN IV 10/15/16 13:30 Potassium Chloride 100 ml @ 50 mls/hr UNSCH PRN IV 10/15/16 13:30 Potassium Chloride 100 ml @ 50 mls/hr UNSCH PRN IV 10/15/16 13:30 Magnesium Sulfate 2 gm/Sodium Chloride 104 ml @ 100 mls/hr UNSCH PRN IV 10/15/16 13:30 Magnesium Sulfate 2 gm/Sodium Chloride 104 ml @ 50 mls/hr UNSCH PRN IV 10/15/16 13:30 (Calcium Chloride Inj/NS Inj) 110 ml @ 100 mls/hr UNSCH PRN IV 10/15/16 13:30 Calcium Chloride 0.5 gm 0.5 gm UNSCH PRN IV 10/15/16 13:30 (NovoLIN R (IV INFUSION)/NS Inj) 100 ml @ 0 mls/hr TITRATE IV 10/15/16 13:30 (D50w (Vial) Inj) 25 ml UNSCH PRN IV PUSH 10/15/16 13:30 Family History Family history reviewed and noncontributory to present illness Social History Occasional ETOH No Tobacco Physical Exam Vital Signs Date Time Temp Pulse Resp B/P Pulse Ox O2 Delivery O2 Flow Rate FiO2 10/15/16 13:59 94 50 10/15/16 07:00 97.7 94 17 140/83 93 10/15/16 07:00 94 10/15/16 03:00 98.3 86 18 130/72 94 10/15/16 03:00 86 10/14/16 23:00 97.9 83 18 142/79 96 10/14/16 23:00 83 10/14/16 19:00 96 10/14/16 19:00 98.2 96 18 141/84 93 10/14/16 16:00 98.0 103 18 128/68 99 10/14/16 15:39 86 Physical Exam GENERAL: This is a well-nourished, well-developed patient, in no apparent distress. SKIN: No rashes, ecchymoses or lesions. Cool and dry. HEAD: Atraumatic. Normocephalic. EYES: Extraocular motions intact. No scleral icterus. No injection or drainage. ENT: Nose without bleeding, purulent drainage. Airway patent and intubated NECK: Trachea midline. No JVD CARDIOVASCULAR: Regular rate and rhythm. RESPIRATORY: Intubated. GASTROINTESTINAL: Abdomen soft, non-tender, nondistended. GENITOURINARY: Uncircumcised phallus, normal meatus, no lesions MUSCULOSKELETAL: Extremities without clubbing, cyanosis, or edema. . NEUROLOGICAL: Intubated and sedated. Lab results reviewed: Yes Laboratory Tests Test 10/14/16 10/14/16 10/14/16 10/15/16 16:50 17:55 18:11 03:28 White Blood Count 10.5 12.3 Red Blood Count 4.35 4.19 Hemoglobin 12.1 11.9 Hematocrit 37.5 35.9 Mean Corpuscular Volume 86.1 85.6 Mean Corpuscular Hemoglobin 27.9 28.3 Mean Corpuscular Hemoglobin 32.4 33.1 Concent Red Cell Distribution Width 14.7 15.4 Platelet Count 219 226 Mean Platelet Volume 8.1 8.1 Activated Partial 37.9 Thromboplast Time Urine Color LIGHT-YELLOW Urine Turbidity CLEAR Urine pH 5.5 Urine Specific [place] 1.031 Urine Protein NEG Urine Glucose (UA) 1000 Urine Ketones NEG Urine Occult Blood NEG Urine Nitrite NEG Urine Bilirubin NEG Urine Urobilinogen LESS THAN 2.0 Urine Leukocyte Esterase NEG Urine RBC 2 Urine WBC 1 Urine Mucus FEW Microscopic Urinalysis Comment CULT NOT INDICATED Nasal Screen MRSA (PCR) NEGATIVE Neutrophils (%) (Auto) 73.9 Lymphocytes (%) (Auto) 15.2 Monocytes (%) (Auto) 9.2 Eosinophils (%) (Auto) 1.2 Basophils (%) (Auto) 0.5 Neutrophils # (Auto) 9.1 Lymphocytes # (Auto) 1.9 Monocytes # (Auto) 1.1 Eosinophils # (Auto) 0.1 Basophils # (Auto) 0.1 CBC Comment DIFF FINAL Differential Comment Sodium Level 143 Potassium Level 3.9 Chloride Level 105 Carbon Dioxide Level 30.1 Anion Gap 8 Blood Urea Nitrogen 23 Creatinine 1.57 Estimat Glomerular Filtration 44 Rate Random Glucose 151 Calcium Level 8.9 Result Diagram: 10/15/16 0328 10/15/16 0328 Personally reviewed images: Yes Imaging Last Impressions Lower Extremity Ultrasound 10/14/16 0000 Signed Impressions: Service Date/Time: Friday, October 14, 2016 13:17 - CONCLUSION: 1. Greater saphenous vein below the knee are extremely diminutive and difficult to follow. 2. Above the knee, the right greater saphenous measures 2-4 mm but could not be seen just above the knee joint. 3. On the left, greater saphenous measures between 2-5 mm above the knee. Ashu Martin MD Chest X-Ray 10/14/16 0000 Signed Impressions: Service Date/Time: Friday, October 14, 2016 11:09 - CONCLUSION: Minimal atelectatic changes above the right hemidiaphragm. Lungs otherwise clear. Ashu Martin MD Carotid Artery Ultrasound 10/14/16 0000 Signed Impressions: Service Date/Time: Friday, October 14, 2016 12:55 - CONCLUSION: 1. Dense atherosclerotic plaquing throughout both carotid systems. 2. This is most severe in the distal left common carotid artery were velocities approach 150 cm/s. This may be indicative of a moderate stenosis in this region. No significant stenosis identified in the internal carotid arteries. Antegrade flow in both vertebrals. Ashu Martin MD Assessment and Plan Problem List: (1) Urinary retention ICD Code: R33.9 Status: Acute Assessment and Plan -16 Fr Gaines catheter was guided into the bladder. Mild resistance noted with likely soft strictures in the proximal urethral -After catheter was completely in place, no urine return was noted. The catheter and bladder was then irrigated with resulting clear yellow urine return noted -Gaines catheter may remain in place per primary team -Patient to follow-up with Urology after discharge to further evaluate is lower urinary tract symptoms and history of prostate cancer -Please call with questions Brian Zarco MD Oct 15, 2016 14:36
--- NOTE | 2016-10-15 15:13 | RADRPT ---
EXAM DATE/TIME: 10/15/2016 14:21 [facility] COMPARISON: CHEST SINGLE AP, October 14, 2016, 11:09. INDICATIONS : Post CABG MEDICAL HISTORY : Myocardial infarction. SURGICAL HISTORY : Coronary artery stent. ENCOUNTER: Subsequent ACUITY: 2 days PAIN SCORE: Non-responsive. LOCATION: chest FINDINGS: The heart is normal in size. The ET tube is in good position. The chest tube on the left is in good p osition there is no pneumothorax. There is a right central line in good position. The lungs demonstra te only minimal basal atelectasis on the left but are otherwise clear. No retained foreign body is se en. CONCLUSION: 1. Stable postoperative chest. Support equipment in good position. Jamari Camejo MD on October 15, 2016 at 15:10 Board Certified Radiologist. This report was verified electronically.
[2016-10-15] MEDS: METOCLOPRAMIDE HCL 10 MG/2 ML VIAL IV PUSH SCH ×2 (16:00→21:16)
[2016-10-15] MEDS: RESP: ALBUTEROL 2.5 MG/IPRATROPIUM 0.5 MG NEB (SCH) NEB ×2 (16:07→20:54)
[2016-10-15] MEDS: AMIODARONE 200 MG TAB PO SCH (21:17)
[2016-10-15] MEDS: oxyCODONE/ACETAMINOPHEN 5 MG/325 MG TAB PO PRN (22:41)
[2016-10-16] VITALS (14 sets, daily range): BP systolic 105–147; BP diastolic 64–80; PULSE 89–126; RESP 16–20; TEMP 97–98.9; O2SAT 90–96
[2016-10-16] MEDS: ACETAMINOPHEN 1000 MG/100 ML VIAL IV SCH ×2 (02:25→08:05)
[2016-10-16] MEDS: RESP: ALBUTEROL 2.5 MG/IPRATROPIUM 0.5 MG NEB (SCH) NEB ×4 (03:56→20:12)
--- NOTE | 2016-10-16 05:41 | RADRPT ---
EXAM DATE/TIME: 10/16/2016 03:33 [facility] COMPARISON: CHEST SINGLE AP, October 15, 2016, 14:21. INDICATIONS : Evaluate for cardiac diseases. MEDICAL HISTORY : Myocardial infarction. SURGICAL HISTORY : Coronary artery stent. ENCOUNTER: Subsequent ACUITY: 3 days PAIN SCORE: Non-responsive. LOCATION: chest FINDINGS: A single portable frontal view the chest shows low lung volumes. Left thoracostomy tube noted. Right- sided central line observed. Bibasilar atelectasis. No infiltrate or effusion. Heart is normal in siz e. Median sternotomy wires. CONCLUSION: 1. Left thoracostomy tube without pneumothorax. 2. Low lung volumes with mild bibasilar atelectasis. Damián Rodriguez Jr., MD on October 16, 2016 at 5:38 Board Certified Radiologist. This report was verified electronically.
[2016-10-16 05:50] LABS: HEMATOCRIT 30.9 % (39.0-51.0); MEAN CELL VOLUME 85.7 FL (80.0-100.0); MEAN CORPUSCULAR HEMOGLOBIN 28.2 PG (27.0-34.0); MEAN CORPUSCULAR HGB CONC 32.9 % (32.0-36.0); PLATELET COUNT 194 TH/MM3 (150-450); RED BLOOD COUNT 3.61 MIL/MM3 (4.50-5.90); RED CELL DISTRIBUTION WIDTH 15.4 % (11.6-17.2); REVIEW FLAG FINAL; WHITE BLOOD COUNT 13.4 TH/MM3 (4.0-11.0)
[2016-10-16] MEDS: PANTOPRAZOLE SOD 40 MG DELAYED RELEASE TAB PO SCH (05:54)
[2016-10-16] MEDS: METOCLOPRAMIDE HCL 10 MG/2 ML VIAL IV PUSH SCH (05:55)
[2016-10-16 06:06] LABS: POTASSIUM 4.2 MEQ/L (3.5-5.1)
[2016-10-16] MEDS: oxyCODONE/ACETAMINOPHEN 5 MG/325 MG TAB PO PRN ×5 (06:14→19:48)
[2016-10-16] MEDS: ATORVASTATIN 80 MG TAB PO SCH (08:05)
[2016-10-16] MEDS: ASPIRIN 81 MG CHEW TAB PO SCH (08:06)
[2016-10-16] MEDS: AMIODARONE 200 MG TAB PO SCH ×2 (08:06→20:48)
[2016-10-16] MEDS: METOPROLOL TARTRATE 5 MG/5 ML VIAL IV PUSH PRN ×2 (08:37→18:40)
[2016-10-16] MEDS ORDERED: GLUCAGON 1 MG/ML VIAL OTHER PRN (08:45)
[2016-10-16] MEDS ORDERED: SOD PHOSPHATE/SOD BIPHOSPHATE (ADULT) ENEMA 133ML RECTAL PRN (08:45)
[2016-10-16] MEDS ORDERED: INSULIN DETEMIR 100 UNITS/ML VIAL SQ ONE (08:45)
[2016-10-16] MEDS ORDERED: DEXTROSE 50% IN WATER 50 ML VIAL(D50) IV PRN (08:45)
[2016-10-16] MEDS ORDERED: BISACODYL 10 MG SUPP RECTAL PRN (08:45)
[2016-10-16] MEDS: SODIUM CHLORIDE 0.9% FLUSH 10 ML FLUSH IV FLUSH SCH ×2 (08:46→21:00)
[2016-10-16] MEDS: PATIENT OWN MEDICATION PO SCH (09:00)
[2016-10-16] MEDS: MAGNESIUM HYDROXIDE SUSP 30 ML CUP PO SCH (09:00)
[2016-10-16] MEDS ORDERED: JANUMET PO SCH (09:00)
[2016-10-16] MEDS: INSULIN ASPART SUPPLEMENTAL SCALE SQ SCH ×4 (10:00→21:10)
--- NOTE | 2016-10-16 10:27 | PD.CARD.PN ---
Subjective Subjective Remarks Appropriate chest pain, no shortness of breath Extubated, up in the chair Objective Medications Current Medications Medications (Trade) Dose Ordered Sig/Phoebe Route Start Time Stop Time Status Last Admin (Levemir Inj) 25 units HS SQ 10/14/16 21:00 Hold 10/14/16 21:00 Patient Own Medication PT OWN MED: (Empagliflozin (Jardian... DAILY PO 10/15/16 09:00 (Lipitor) 80 mg DAILY PO 10/15/16 09:00 10/16/16 08:05 (Pill Splitter) 1 ea UNSCH PRN OTHER 10/14/16 11:30 (NS Flush) 2 ml BID IV FLUSH 10/15/16 21:00 10/16/16 08:46 Sodium Chloride 2 ml 2 ml UNSCH PRN IV FLUSH 10/15/16 13:30 (Ancef Inj/NS Inj) 100 ml @ 200 mls/hr Q8H IV 10/15/16 15:00 10/16/16 23:29 10/16/16 05:55 (Aspirin Chew) 81 mg DAILY PO 10/16/16 09:00 10/16/16 08:06 (Protonix) 40 mg DAILY@06 PO 10/16/16 06:00 10/16/16 05:54 (Cordarone) 200 mg Q12HR PO 10/15/16 21:00 10/16/16 08:06 (Tylenol) 650 mg Q4H PRN PO 10/15/16 13:30 (Percocet 5-325 Mg) 1 tab Q3H PRN PO 10/15/16 13:30 10/16/16 06:14 (fentaNYL INJ) 25 mcg Q1H PRN IV 10/15/16 13:30 10/16/16 07:57 (Zofran Inj) 4 mg Q6H PRN IV PUSH 10/15/16 13:30 (Apresoline Inj) 10 mg Q4H PRN IV 10/15/16 13:30 Metoprolol Tartrate 2.5 mg 2.5 mg Q1H PRN IV PUSH 10/15/16 13:30 10/16/16 08:37 Magnesium Sulfate 2 gm/Sodium Chloride 104 ml @ 100 mls/hr UNSCH PRN IV 10/15/16 13:30 Magnesium Sulfate 2 gm/Sodium Chloride 104 ml @ 50 mls/hr UNSCH PRN IV 10/15/16 13:30 10/16/16 09:21 (NovoLIN R (IV INFUSION)/NS Inj) 100 ml @ 0 mls/hr TITRATE IV 10/15/16 13:30 10/16/16 05:59 Patient Own Medication Janumet ER 50-1000mg da... DAILY PO 10/16/16 09:00 UNV (Reglan Inj) 5 mg Q6HR IV 10/16/16 08:45 (Colace) 100 mg BID PO 10/16/16 21:00 (Theragran M Tab) 1 tab DAILY PO 10/16/16 09:00 (Milk Of Magnesia Liq) 30 ml DAILY PO 10/16/16 09:00 (Miralax) 17 gm DAILY PO 10/17/16 09:00 (Senokot) 8.6 mg HS PO 10/16/16 21:00 (Fleets Enema (Adult)) 133 ml UNSCH PRN RECTAL 10/16/16 08:45 (Lopressor) 25 mg BID PO 10/16/16 09:00 (NovoLOG SUPPLEMENTAL SCALE) 1 02,06,10,14,18,22 SQ 10/16/16 10:00 (D50w (Vial) Inj) 25 ml UNSCH PRN IV 10/16/16 08:45 (Glucagon Inj) 1 mg UNSCH PRN OTHER 10/16/16 08:45 (Flomax) 0.4 mg DAILY PO 10/16/16 09:00 (Levemir Inj) 10 units Q12HR SQ 10/16/16 21:00 (Percocet 5-325 Mg) 2 tab Q3H PRN PO 10/16/16 09:30 10/16/16 09:32 Vital Signs / I&O Vital Signs Date Time Temp Pulse Resp B/P Pulse Ox O2 Delivery O2 Flow Rate FiO2 10/16/16 09:08 96 Nasal Cannula 4.00 10/16/16 08:00 92 Nasal Cannula 4.00 Humidified 10/16/16 08:00 113 10/16/16 08:00 98.8 113 16 123/70 92 147/71 10/16/16 04:00 96 Nasal Cannula 4.00 10/16/16 03:00 98.9 104 18 138/79 96 139/64 10/16/16 03:00 104 10/16/16 00:00 93 Nasal Cannula 4.00 10/15/16 23:30 18 10/15/16 23:00 97.9 111 18 147/87 93 147/65 10/15/16 23:00 111 10/15/16 21:50 96 Nasal Cannula 4.00 10/15/16 20:54 98 Nasal Cannula 6.00 10/15/16 20:40 20 10/15/16 20:06 18 10/15/16 20:00 93 Venturi Mask 50 10/15/16 19:00 98.3 111 18 134/69 93 10/15/16 19:00 111 10/15/16 15:10 94 Venturi Mask 6.00 50 10/15/16 15:10 91 Nasal Cannula 6 10/15/16 15:00 110 10/15/16 15:00 98.1 109 12 142/83 94 160/69 10/15/16 15:00 95 40 10/15/16 13:59 94 50 10/15/16 13:55 50 10/15/16 13:55 97.8 97 12 132/78 95 133/66 10/15/16 13:55 97 I/O 10/15/16 10/15/16 10/15/16 10/16/16 10/16/16 10/16/16 07:00 15:00 23:00 07:00 15:00 23:00 Intake Total 940 ml 1729 ml 1286 ml Output Total 1350 ml 895 ml 1230 ml Balance -410 ml 834 ml 56 ml Intake Oral 420 ml 840 ml IV Total 520 ml 1729 ml 446 ml Output Urine Total 1350 ml 645 ml 1000 ml Gastric Drainage Total 0 ml Chest Tube Drainage Total 250 ml 230 ml # Bowel Movements 1 0 0 Physical Exam GENERAL: NAD, AAOx3 SKIN: Warm and dry. HEAD: Atraumatic. Normocephalic. EYES: Pupils equal and round. No scleral icterus. No injection or drainage. ENT: No nasal bleeding or discharge. Mucous membranes pink and moist. NECK: Trachea midline. No JVD. CARDIOVASCULAR: Regular rate and rhythm. No murmurs noted. Sternotomy with wound vac in place RESPIRATORY: No accessory muscle use. Decreased breath sounds bilaterally GASTROINTESTINAL: Abdomen soft, non-tender, nondistended. Hepatic and splenic margins not palpable. MUSCULOSKELETAL: Extremities without clubbing, cyanosis, or edema. No obvious deformities. NEUROLOGICAL: Awake and alert. No obvious cranial nerve deficits. Motor grossly within normal limits. Five out of 5 muscle strength in the arms and legs. Normal speech. PSYCHIATRIC: Appropriate mood and affect; insight and judgment normal. Laboratory Laboratory Tests Test 10/16/16 04:40 White Blood Count 13.4 TH/MM3 Red Blood Count 3.61 MIL/MM3 Hemoglobin 10.2 GM/DL Hematocrit 30.9 % Mean Corpuscular Volume 85.7 FL Mean Corpuscular Hemoglobin 28.2 PG Mean Corpuscular Hemoglobin 32.9 % Concent Red Cell Distribution Width 15.4 % Platelet Count 194 TH/MM3 Mean Platelet Volume 8.6 FL Sodium Level 143 MEQ/L Potassium Level 4.2 MEQ/L Chloride Level 108 MEQ/L Carbon Dioxide Level 24.0 MEQ/L Anion Gap 11 MEQ/L Blood Urea Nitrogen 20 MG/DL Creatinine 1.37 MG/DL Estimat Glomerular Filtration 52 ML/MIN Rate Random Glucose 122 MG/DL Calcium Level 8.4 MG/DL Magnesium Level 2.0 MG/DL Assessment and Plan Problem List: (1) Multi-vessel coronary artery stenosis (2) CAD (coronary artery disease) (3) HTN (hypertension) (4) DM (diabetes mellitus) (5) HLD (hyperlipidemia) (6) CKD (chronic kidney disease) (7) Anxiety Assessment and Plan 1) MVCAD s/p CABG POD #1 (ROACH to LAD, SVG to ramus, SVG to PDA) 2) Continue ASA/BB/Statin/Amio 3) Yusra held post cath, creatinine somewhat better, will have to see what his baseline is before restarting 4) Would avoid Celebrex long term care phlebotomist with ischemic heart disease 5) Ambulate when possible, IS to bedside Nakul Valera DO Oct 16, 2016 10:27
[2016-10-16] MEDS: METOPROLOL TARTRATE 25 MG TAB PO SCH ×2 (12:41→20:48)
[2016-10-16] MEDS: MULTIVITAMINS/MINERALS THERAPEUTIC TAB PO SCH (12:42)
[2016-10-16] MEDS: METOCLOPRAMIDE HCL 10 MG/2 ML VIAL IV SCH ×2 (12:43→18:07)
[2016-10-16] MEDS: TAMSULOSIN HCL 0.4 MG CAP PO SCH (14:17)
--- NOTE | 2016-10-16 17:57 | PD.CAR.PN ---
CVT Progress Note CVT: POD #: 1 Subjective/Hospital Course: 66/ male / required a cardiac clearance for Heme + home stool test, had abnormal stress test / EF 60% , underwent cardiac cath by Dr Valera , found to have multivessel disease PMH: CAD/ [place] stents x 2 , DM, HLP, HTN, insomnia, prostate CA with radiation surgery : 10/15 CABG X 3 crystalloid + 2500cc/ cellsaver 500cc/ 250cc EBL required ganies cath placement by urology 10/16 no pressors, extubated after surgery yesterday, up in chair on nasal cannula weaned off insulin gtt gaines dc pulm toileting , OOB ambulate on ASA, amiodarone, statin, start BB Objective: GENERAL: SKIN: Warm and dry.prevena dressing to chest , incision intact to leg HEAD: Normocephalic. EYES: No scleral icterus. No injection or drainage. NECK: Supple, trachea midline. No JVD or lymphadenopathy. CARDIOVASCULAR: Regular rate and rhythm without murmurs, gallops, or rubs. RESPIRATORY: diminished in bases Breath sounds equal bilaterally. No accessory muscle use. GASTROINTESTINAL: Abdomen soft, non-tender, nondistended. MUSCULOSKELETAL: No cyanosis, or edema. BACK: Nontender without obvious deformity. No CVA tenderness. Vital Signs Date Time Temp Pulse Resp B/P Pulse Ox O2 Delivery O2 Flow Rate FiO2 10/16/16 17:05 111 10/16/16 16:39 94 Nasal Cannula 3.00 10/16/16 16:30 97.0 89 18 128/78 94 10/16/16 15:00 105 10/16/16 15:00 98.7 105 16 120/68 94 10/16/16 15:00 105 10/16/16 15:00 98 Nasal Cannula 4.00 Humidified 10/16/16 11:00 92 10/16/16 11:00 94 Nasal Cannula 3.00 Humidified 10/16/16 11:00 90 10/16/16 11:00 98.5 90 16 128/80 94 119/70 10/16/16 10:30 16 10/16/16 09:08 96 Nasal Cannula 4.00 10/16/16 09:00 16 10/16/16 08:30 16 10/16/16 08:30 16 10/16/16 08:00 92 Nasal Cannula 4.00 Humidified 10/16/16 08:00 113 10/16/16 08:00 98.8 113 16 123/70 92 147/71 10/16/16 04:00 96 Nasal Cannula 4.00 10/16/16 03:00 98.9 104 18 138/79 96 139/64 10/16/16 03:00 104 10/16/16 00:00 93 Nasal Cannula 4.00 10/15/16 23:00 97.9 111 18 147/87 93 147/65 10/15/16 23:00 111 10/15/16 21:50 96 Nasal Cannula 4.00 10/15/16 20:54 98 Nasal Cannula 6.00 10/15/16 20:00 93 Venturi Mask 50 10/15/16 19:00 98.3 111 18 134/69 93 10/15/16 19:00 111 Result Diagram: 10/16/1643910/16/16 0440 Telemetry: NSR (1) CAD (coronary artery disease) (2) S/P CABG x 3 Plan: ASA, statin, BB , amiodarone OOB, ambulate (3) HTN (hypertension) Plan: BB , on rubén at home (4) DM (diabetes mellitus) Plan: insulin SS, diabetic diet HGB A1c 9.5/ consult chemical educator luz Meng in am (5) HLD (hyperlipidemia) Plan: on statin (6) CKD (chronic kidney disease) Plan: baseline 1.62 now 1.37 avoid nephrotoxins, monitor indices, hold on diuresing today (7) Anxiety (8) Urinary retention Plan: gaines removed monitor urine output Maira Valverde Oct 16, 2016 17:57
[2016-10-16] MEDS: SENNOSIDES 8.6 MG TAB PO SCH (20:47)
[2016-10-16] MEDS: DOCUSATE SODIUM 100 MG CAP PO SCH (20:48)
[2016-10-16] MEDS: LORazepam 1 MG TAB PO PRN (21:09)
[2016-10-16] MEDS: INSULIN DETEMIR 100 UNITS/ML VIAL SQ SCH (21:10)
[2016-10-17] VITALS (25 sets, daily range): BP systolic 102–152; BP diastolic 48–91; PULSE 92–116; RESP 20; TEMP 97.7–98.4; O2SAT 91–95
[2016-10-17] MEDS: oxyCODONE/ACETAMINOPHEN 5 MG/325 MG TAB PO PRN ×7 (00:01→22:43)
[2016-10-17] MEDS: METOCLOPRAMIDE HCL 10 MG/2 ML VIAL IV SCH ×4 (00:03→17:55)
[2016-10-17] MEDS: INSULIN ASPART SUPPLEMENTAL SCALE SQ SCH ×5 (00:34→20:25)
[2016-10-17] MEDS: METOPROLOL TARTRATE 5 MG/5 ML VIAL IV PUSH PRN (02:50)
[2016-10-17] MEDS: LORazepam 1 MG TAB PO PRN (02:53)
[2016-10-17] MEDS: PANTOPRAZOLE SOD 40 MG DELAYED RELEASE TAB PO SCH (05:48)
[2016-10-17 07:14] LABS: AUTOMATED NEUTROPHIL # 11.4 TH/MM3 (1.8-7.7); BASOPHIL % 0.2 % (0.0-2.0); EOSINOPHIL % 0.1 % (0.0-4.0); HEMATOCRIT 28.8 % (39.0-51.0); HEMO FLAGS DIFF FINAL; LYMPH % 9.7 % (9.0-44.0); LYMPHOCYTE # 1.3 TH/MM3 (1.0-4.8); MEAN CELL VOLUME 86.2 FL (80.0-100.0); MEAN CORPUSCULAR HEMOGLOBIN 27.5 PG (27.0-34.0); MONO % 7.4 % (0.0-8.0); NEUT % 82.6 % (16.0-70.0); PLATELET COUNT 191 TH/MM3 (150-450); RED BLOOD COUNT 3.34 MIL/MM3 (4.50-5.90); RED CELL DISTRIBUTION WIDTH 15.3 % (11.6-17.2); WHITE BLOOD COUNT 13.8 TH/MM3 (4.0-11.0)
[2016-10-17] MEDS: RESP: ALBUTEROL 2.5 MG/IPRATROPIUM 0.5 MG NEB (SCH) NEB (07:23)
[2016-10-17 07:44] LABS: BICARBONATE 28.4 MEQ/L (21.0-32.0); MAGNESIUM 2.3 MG/DL (1.5-2.5); POTASSIUM 4.2 MEQ/L (3.5-5.1)
[2016-10-17] MEDS: POLYETHYLENE GLYCOL 17 GM PKG PO SCH (08:17)
[2016-10-17] MEDS: MAGNESIUM HYDROXIDE SUSP 30 ML CUP PO SCH (08:17)
[2016-10-17] MEDS: DOCUSATE SODIUM 100 MG CAP PO SCH ×2 (08:17→19:52)
[2016-10-17] MEDS: ATORVASTATIN 80 MG TAB PO SCH (08:18)
[2016-10-17] MEDS: TAMSULOSIN HCL 0.4 MG CAP PO SCH (08:18)
[2016-10-17] MEDS: AMIODARONE 200 MG TAB PO SCH ×2 (08:18→19:52)
[2016-10-17] MEDS: ASPIRIN 81 MG CHEW TAB PO SCH (08:19)
[2016-10-17] MEDS: JANUMET PO SCH (08:19)
[2016-10-17] MEDS: INSULIN DETEMIR 100 UNITS/ML VIAL SQ SCH ×2 (08:19→19:52)
[2016-10-17] MEDS: MULTIVITAMINS/MINERALS THERAPEUTIC TAB PO SCH (08:19)
[2016-10-17] MEDS: METOPROLOL TARTRATE 25 MG TAB PO SCH ×2 (08:19→19:51)
[2016-10-17] MEDS: SODIUM CHLORIDE 0.9% FLUSH 10 ML FLUSH IV FLUSH SCH ×2 (08:20→21:00)
[2016-10-17] MEDS: PATIENT OWN MEDICATION PO SCH (08:21)
--- NOTE | 2016-10-17 11:04 | EKG ---
Date Performed: 10/16/2016 Time Performed: 04:18:56 PTAGE: 66 years EKG: Sinus tachycardia Leftward axis Inferior infarct - age undetermined Lateral T wave changes are nonspecific Abnormal ECG PREVIOUS TRACING : 10/14/2016 08.11 DOCTOR: Edith Zhao Interpretating Date/Time 10/17/2016 11:02:21
--- NOTE | 2016-10-17 11:08 | PD.CAR.PN ---
CVT Progress Note CVT: POD #: 2 Subjective/Hospital Course: 66/ male / required a cardiac clearance for Heme + home stool test, had abnormal stress test / EF 60% , underwent cardiac cath by Dr Valera , found to have multivessel disease PMH: CAD/ [place] stents x 2 , DM, HLP, HTN, insomnia, prostate CA with radiation surgery : 10/15 CABG X 3 crystalloid + 2500cc/ cellsaver 500cc/ 250cc EBL required gaines cath placement by urology 10/16 no pressors, extubated after surgery yesterday, up in chair on nasal cannula weaned off insulin gtt gaines dc pulm toileting , OOB ambulate on ASA, amiodarone, statin, start BB 10/17/16 No complaints, doing well Objective: Vital Signs Date Time Temp Pulse Resp B/P Pulse Ox O2 Delivery O2 Flow Rate FiO2 10/17/16 10:00 92 10/17/16 09:00 97 10/17/16 08:00 114 10/17/16 08:00 95 Nasal Cannula 4.00 10/17/16 07:26 94 Nasal Cannula 4.00 10/17/16 07:00 98.3 98 20 125/75 95 10/17/16 07:00 98 10/17/16 06:00 98 10/17/16 05:00 100 10/17/16 04:16 20 10/17/16 04:00 Nasal Cannula 4.00 10/17/16 04:00 102 10/17/16 03:00 98.4 110 20 129/74 91 10/17/16 03:00 108 10/17/16 02:00 104 10/17/16 01:52 Nasal Cannula 4.00 10/17/16 01:00 102 10/17/16 00:00 106 10/16/16 23:00 108 10/16/16 23:00 98.2 110 20 105/68 92 10/16/16 22:00 106 10/16/16 21:00 126 10/16/16 20:13 90 Nasal Cannula 3.00 10/16/16 20:00 126 10/16/16 20:00 Nasal Cannula 4.00 10/16/16 19:00 98.4 126 20 118/67 92 Arterial Line Automatic Cuff 10/16/16 19:00 108 10/16/16 18:20 116 10/16/16 17:05 111 10/16/16 16:39 94 Nasal Cannula 3.00 10/16/16 16:30 97.0 89 18 128/78 94 10/16/16 15:00 105 10/16/16 15:00 98.7 105 16 120/68 94 10/16/16 15:00 105 10/16/16 15:00 98 Nasal Cannula 4.00 Humidified Labs: Laboratory Tests Test 10/17/16 05:55 White Blood Count 13.8 TH/MM3 (4.0-11.0) Red Blood Count 3.34 MIL/MM3 (4.50-5.90) Hemoglobin 9.2 GM/DL (13.0-17.0) Hematocrit 28.8 % (39.0-51.0) Mean Corpuscular Volume 86.2 FL (80.0-100.0) Mean Corpuscular Hemoglobin 27.5 PG (27.0-34.0) Mean Corpuscular Hemoglobin 32.0 % Concent (32.0-36.0) Red Cell Distribution Width 15.3 % (11.6-17.2) Platelet Count 191 TH/MM3 (150-450) Mean Platelet Volume 8.4 FL (7.0-11.0) Neutrophils (%) (Auto) 82.6 % (16.0-70.0) Lymphocytes (%) (Auto) 9.7 % (9.0-44.0) Monocytes (%) (Auto) 7.4 % (0.0-8.0) Eosinophils (%) (Auto) 0.1 % (0.0-4.0) Basophils (%) (Auto) 0.2 % (0.0-2.0) Neutrophils # (Auto) 11.4 TH/MM3 (1.8-7.7) Lymphocytes # (Auto) 1.3 TH/MM3 (1.0-4.8) Monocytes # (Auto) 1.0 TH/MM3 (0-0.9) Eosinophils # (Auto) 0.0 TH/MM3 (0-0.4) Basophils # (Auto) 0.0 TH/MM3 (0-0.2) CBC Comment DIFF FINAL Differential Comment Sodium Level 141 MEQ/L (136-145) Potassium Level 4.2 MEQ/L (3.5-5.1) Chloride Level 106 MEQ/L (98-107) Carbon Dioxide Level 28.4 MEQ/L (21.0-32.0) Anion Gap 7 MEQ/L (5-15) Blood Urea Nitrogen 26 MG/DL (7-18) Creatinine 1.38 MG/DL (0.60-1.30) Estimat Glomerular Filtration 51 ML/MIN (>89) Rate Random Glucose 108 MG/DL (74-106) Calcium Level 8.5 MG/DL (8.5-10.1) Magnesium Level 2.3 MG/DL (1.5-2.5) Result Diagram: 10/17/1655410/17/16554 Cardiovascular: RRR Telemetry: NSR Pulmonary: CTA GI/: NABS, NT Incision: dry and intact CT: 140ml/12hrs Plan: Encourage ambulation Up to chair Stim BM Diurese Remove chest tubes. Possible home tomorrow (1) CAD (coronary artery disease) (2) S/P CABG x 3 Plan: ASA, statin, BB , amiodarone OOB, ambulate (3) HTN (hypertension) Plan: BB , on rubén at home (4) DM (diabetes mellitus) Plan: insulin SS, diabetic diet HGB A1c 9.5/ consult community educator resume Janumet in am (5) HLD (hyperlipidemia) Plan: on statin (6) CKD (chronic kidney disease) Plan: baseline 1.62 now 1.37 avoid nephrotoxins, monitor indices, hold on diuresing today (7) Anxiety (8) Urinary retention Plan: gaines removed monitor urine output Rohini Kc MD Oct 17, 2016 11:08
[2016-10-17] MEDS: FUROSEMIDE 40 MG/4 ML VIAL IV PUSH SCH (17:56)
[2016-10-17] MEDS: SENNOSIDES 8.6 MG TAB PO SCH (19:51)
[2016-10-17] MEDS: diphenhydrAMINE HCL 50 MG CAP PO PRN (20:24)
[2016-10-18] VITALS (26 sets, daily range): BP systolic 109–135; BP diastolic 69–84; PULSE 88–116; RESP 16–20; TEMP 98.2–99.2; O2SAT 93–98
[2016-10-18] MEDS: oxyCODONE/ACETAMINOPHEN 5 MG/325 MG TAB PO PRN ×4 (02:30→20:36)
[2016-10-18] MEDS: PANTOPRAZOLE SOD 40 MG DELAYED RELEASE TAB PO SCH (06:04)
[2016-10-18] MEDS: INSULIN ASPART SUPPLEMENTAL SCALE SQ SCH ×4 (06:39→20:58)
[2016-10-18] MEDS: POLYETHYLENE GLYCOL 17 GM PKG PO SCH (08:24)
[2016-10-18] MEDS: JANUMET PO SCH (08:24)
[2016-10-18] MEDS: METOPROLOL TARTRATE 25 MG TAB PO SCH (08:26)
[2016-10-18] MEDS: MAGNESIUM HYDROXIDE SUSP 30 ML CUP PO SCH (08:26)
[2016-10-18] MEDS: TAMSULOSIN HCL 0.4 MG CAP PO SCH (08:26)
[2016-10-18] MEDS: INSULIN DETEMIR 100 UNITS/ML VIAL SQ SCH ×2 (08:26→20:35)
[2016-10-18] MEDS: ASPIRIN 81 MG CHEW TAB PO SCH (08:26)
[2016-10-18] MEDS: DOCUSATE SODIUM 100 MG CAP PO SCH ×2 (08:26→20:42)
[2016-10-18] MEDS: MULTIVITAMINS/MINERALS THERAPEUTIC TAB PO SCH (08:26)
[2016-10-18] MEDS: ATORVASTATIN 80 MG TAB PO SCH (08:27)
[2016-10-18] MEDS: SODIUM CHLORIDE 0.9% FLUSH 10 ML FLUSH IV FLUSH SCH ×2 (08:27→21:00)
[2016-10-18] MEDS: AMIODARONE 200 MG TAB PO SCH ×2 (08:27→20:36)
[2016-10-18] MEDS: PATIENT OWN MEDICATION PO SCH (08:27)
[2016-10-18] MEDS: FUROSEMIDE 40 MG/4 ML VIAL IV PUSH SCH ×2 (08:27→17:53)
--- NOTE | 2016-10-18 11:39 | PD.CAR.PN ---
CVT Progress Note CVT: POD #: 3 Subjective/Hospital Course: 66/ male / required a cardiac clearance for Heme + home stool test, had abnormal stress test / EF 60% , underwent cardiac cath by Dr Valera , found to have multivessel disease PMH: CAD/ [place] stents x 2 , DM, HLP, HTN, insomnia, prostate CA with radiation surgery : 10/15 CABG X 3 crystalloid + 2500cc/ cellsaver 500cc/ 250cc EBL required gaines cath placement by urology 10/16 no pressors, extubated after surgery yesterday, up in chair on nasal cannula weaned off insulin gtt gaines dc pulm toileting , OOB ambulate on ASA, amiodarone, statin, start BB 10/17/16 No complaints, doing well 10/18/16 No complaints. On 2 liters NC, no BM Objective: Vital Signs Date Time Temp Pulse Resp B/P Pulse Ox O2 Delivery O2 Flow Rate FiO2 10/18/16 11:00 95 10/18/16 11:00 98.3 99 20 120/76 98 10/18/16 10:19 94 10/18/16 10:00 100 10/18/16 09:00 104 10/18/16 08:00 110 10/18/16 08:00 98 Nasal Cannula 4.00 10/18/16 07:00 99.2 112 20 131/84 98 10/18/16 07:00 104 10/18/16 06:00 102 10/18/16 05:00 106 10/18/16 04:00 Nasal Cannula 4.00 10/18/16 04:00 102 10/18/16 03:30 20 10/18/16 03:00 104 10/18/16 03:00 98.5 108 20 135/82 94 10/18/16 02:00 102 10/18/16 01:00 102 10/18/16 00:00 Nasal Cannula 4.00 10/18/16 00:00 116 10/17/16 23:00 98.4 105 20 124/75 95 10/17/16 23:00 96 10/17/16 22:00 100 10/17/16 21:00 104 10/17/16 20:00 Nasal Cannula 4.00 10/17/16 20:00 102 10/17/16 19:00 98.4 114 20 152/77 95 10/17/16 19:00 114 10/17/16 18:00 108 10/17/16 17:00 106 10/17/16 16:00 92 Nasal Cannula 4.00 10/17/16 16:00 110 10/17/16 15:00 98.0 111 20 149/91 92 10/17/16 15:00 116 10/17/16 14:00 106 10/17/16 13:00 108 10/17/16 12:00 97 10/17/16 12:00 94 Nasal Cannula 4.00 Result Diagram: 10/17/16 0555 10/17/16 0555 Cardiovascular: RRR Telemetry: NSR Pulmonary: CTA GI/: NABS, NT Incision: dry and intact Plan: Wean O2 Stim BM Diurese Increase BB Home tomorrow (1) CAD (coronary artery disease) (2) S/P CABG x 3 Plan: ASA, statin, BB , amiodarone OOB, ambulate (3) HTN (hypertension) Plan: BB , on rubén at home (4) DM (diabetes mellitus) Plan: insulin SS, diabetic diet HGB A1c 9.5/ consult quill cleaner resume Janumet in am (5) HLD (hyperlipidemia) Plan: on statin (6) CKD (chronic kidney disease) Plan: baseline 1.62 now 1.37 avoid nephrotoxins, monitor indices, hold on diuresing today (7) Anxiety (8) Urinary retention Plan: gaines removed monitor urine output Rohini Kc MD Oct 18, 2016 11:39
[2016-10-18] MEDS: diphenhydrAMINE HCL 50 MG CAP PO PRN (20:36)
[2016-10-18] MEDS: METOPROLOL TARTRATE 50 MG TAB PO SCH (20:36)
[2016-10-18] MEDS: SENNOSIDES 8.6 MG TAB PO SCH (20:42)
[2016-10-19] VITALS (21 sets, daily range): BP systolic 116–120; BP diastolic 62–74; PULSE 82–98; RESP 18–20; TEMP 98.4–99.9; O2SAT 93–96
[2016-10-19] MEDS: PANTOPRAZOLE SOD 40 MG DELAYED RELEASE TAB PO SCH (06:05)
[2016-10-19] MEDS: INSULIN ASPART SUPPLEMENTAL SCALE SQ SCH ×3 (06:13→17:05)
[2016-10-19] MEDS: oxyCODONE/ACETAMINOPHEN 5 MG/325 MG TAB PO PRN ×2 (06:31→15:44)
[2016-10-19] MEDS: SODIUM CHLORIDE 0.9% FLUSH 10 ML FLUSH IV FLUSH SCH (08:35)
[2016-10-19] MEDS: INSULIN DETEMIR 100 UNITS/ML VIAL SQ SCH (08:35)
[2016-10-19] MEDS: JANUMET PO SCH (08:36)
[2016-10-19] MEDS: PATIENT OWN MEDICATION PO SCH (08:36)
[2016-10-19] MEDS: FUROSEMIDE 40 MG/4 ML VIAL IV PUSH SCH (08:36)
[2016-10-19] MEDS: TAMSULOSIN HCL 0.4 MG CAP PO SCH (08:37)
[2016-10-19] MEDS: MULTIVITAMINS/MINERALS THERAPEUTIC TAB PO SCH (08:37)
[2016-10-19] MEDS: METOPROLOL TARTRATE 50 MG TAB PO SCH (08:37)
[2016-10-19] MEDS: AMIODARONE 200 MG TAB PO SCH (08:37)
[2016-10-19] MEDS: MAGNESIUM HYDROXIDE SUSP 30 ML CUP PO SCH (08:37)
[2016-10-19] MEDS: ASPIRIN 81 MG CHEW TAB PO SCH (08:37)
[2016-10-19] MEDS: ATORVASTATIN 80 MG TAB PO SCH (08:37)
[2016-10-19] MEDS: POLYETHYLENE GLYCOL 17 GM PKG PO SCH (08:38)
[2016-10-19] MEDS: DOCUSATE SODIUM 100 MG CAP PO SCH (08:38)
--- NOTE | 2016-10-19 10:02 | PD.CARD.PN ---
Subjective Subjective Remarks Doing well off oxygen, no chest pain Objective Medications Current Medications Medications (Trade) Dose Ordered Sig/Phoebe Route Start Time Stop Time Status Last Admin (Levemir Inj) 25 units HS SQ 10/14/16 21:00 Hold 10/14/16 21:00 Patient Own Medication PT OWN MED: (Empagliflozin (Jardian... DAILY PO 10/15/16 09:00 (Lipitor) 80 mg DAILY PO 10/15/16 09:00 10/19/16 08:37 (Pill Splitter) 1 ea UNSCH PRN OTHER 10/14/16 11:30 (NS Flush) 2 ml BID IV FLUSH 10/15/16 21:00 10/19/16 08:35 (NS Flush) 2 ml UNSCH PRN IV FLUSH 10/15/16 13:30 (Aspirin Chew) 81 mg DAILY PO 10/16/16 09:00 10/19/16 08:37 (Protonix) 40 mg DAILY@06 PO 10/16/16 06:00 10/19/16 06:05 (Cordarone) 200 mg Q12HR PO 10/15/16 21:00 10/19/16 08:37 (Tylenol) 650 mg Q4H PRN PO 10/15/16 13:30 (Percocet 5-325 Mg) 1 tab Q3H PRN PO 10/15/16 13:30 10/19/16 06:31 (Zofran Inj) 4 mg Q6H PRN IV PUSH 10/15/16 13:30 (Apresoline Inj) 10 mg Q4H PRN IV 10/15/16 13:30 Metoprolol Tartrate 2.5 mg 2.5 mg Q1H PRN IV PUSH 10/15/16 13:30 10/17/16 02:50 Magnesium Sulfate 2 gm/Sodium Chloride 104 ml @ 100 mls/hr UNSCH PRN IV 10/15/16 13:30 (Magnesium Sulfate Inj/NS Inj) 104 ml @ 50 mls/hr UNSCH PRN IV 10/15/16 13:30 10/16/16 09:21 (Colace) 100 mg BID PO 10/16/16 21:00 10/18/16 08:26 (Theragran M Tab) 1 tab DAILY PO 10/16/16 09:00 10/19/16 08:37 (Milk Of Magnesia Liq) 30 ml DAILY PO 10/16/16 09:00 10/18/16 08:26 (Miralax) 17 gm DAILY PO 10/17/16 09:00 10/18/16 08:24 (Senokot) 8.6 mg HS PO 10/16/16 21:00 10/17/16 19:51 (Fleets Enema (Adult)) 133 ml UNSCH PRN RECTAL 10/16/16 08:45 (D50w (Vial) Inj) 25 ml UNSCH PRN IV 10/16/16 08:45 (Glucagon Inj) 1 mg UNSCH PRN OTHER 10/16/16 08:45 (Flomax) 0.4 mg DAILY PO 10/16/16 09:00 10/19/16 08:37 (Levemir Inj) 10 units Q12HR SQ 10/16/16 21:00 10/19/16 08:35 Patient Own Medication PT OWN Janumet (SITAGLPT... DAILY PO 10/17/16 09:00 10/19/16 08:36 (NovoLOG SUPPLEMENTAL SCALE) 1 ACHS SQ 10/17/16 11:00 10/18/16 20:58 (Lasix Inj) 40 mg BID@09,18 IV PUSH 10/17/16 18:00 10/19/16 08:36 (Benadryl) 50 mg HS PRN PO 10/17/16 14:00 10/18/16 20:36 (Lopressor) 50 mg BID PO 10/18/16 21:00 10/19/16 08:37 Vital Signs / I&O Vital Signs Date Time Temp Pulse Resp B/P Pulse Ox O2 Delivery O2 Flow Rate FiO2 10/19/16 09:38 97 Nasal Cannula 2.00 10/19/16 09:29 95 Nasal Cannula 3.00 10/19/16 09:00 96 Nasal Cannula 3.00 10/19/16 09:00 98 10/19/16 08:00 90 10/19/16 07:57 99.9 84 20 120/67 96 10/19/16 07:56 96 Nasal Cannula 4.00 10/19/16 07:00 97 10/19/16 05:00 90 10/19/16 04:00 82 10/19/16 04:00 Nasal Cannula 4.00 10/19/16 03:00 83 10/19/16 03:00 98.4 83 20 116/74 93 10/19/16 02:00 82 10/19/16 01:00 86 10/19/16 00:00 Nasal Cannula 4.00 10/19/16 00:00 86 10/18/16 23:00 88 10/18/16 23:00 98.6 88 16 109/76 96 10/18/16 22:23 95 21 10/18/16 22:00 94 10/18/16 21:30 20 10/18/16 21:00 110 10/18/16 20:00 108 10/18/16 20:00 Nasal Cannula 4.00 10/18/16 19:00 104 10/18/16 19:00 98.7 104 20 114/69 93 10/18/16 18:00 114 10/18/16 17:00 99 10/18/16 16:00 97 Nasal Cannula 4.00 10/18/16 16:00 103 10/18/16 15:00 94 10/18/16 15:00 98.2 96 18 109/80 97 10/18/16 14:00 92 10/18/16 13:00 95 10/18/16 12:00 98 Nasal Cannula 4.00 10/18/16 12:00 93 10/18/16 11:00 95 10/18/16 11:00 98.3 99 20 120/76 98 10/18/16 10:19 94 I/O 10/18/16 10/18/16 10/18/16 10/19/16 10/19/16 10/19/16 07:00 15:00 23:00 07:00 15:00 23:00 Intake Total 720 ml 1415 ml 1140 ml Output Total 1321 ml 1000 ml 1550 ml Balance -601 ml 415 ml -410 ml Intake Oral 720 ml 1415 ml 1140 ml Output Urine Total 1320 ml 1000 ml 1550 ml Stool Total 1 ml # Bowel Movements 1 Physical Exam GENERAL: NAD, AAOx3 SKIN: Warm and dry. HEAD: Atraumatic. Normocephalic. EYES: Pupils equal and round. No scleral icterus. No injection or drainage. ENT: No nasal bleeding or discharge. Mucous membranes pink and moist. NECK: Trachea midline. No JVD. CARDIOVASCULAR: Regular rate and rhythm. No murmurs noted. Sternotomy with wound vac in place RESPIRATORY: No accessory muscle use. Decreased breath sounds bilaterally GASTROINTESTINAL: Abdomen soft, non-tender, nondistended. Hepatic and splenic margins not palpable. MUSCULOSKELETAL: Extremities without clubbing, cyanosis, or edema. No obvious deformities. NEUROLOGICAL: Awake and alert. No obvious cranial nerve deficits. Motor grossly within normal limits. Five out of 5 muscle strength in the arms and legs. Normal speech. PSYCHIATRIC: Appropriate mood and affect; insight and judgment normal. Assessment and Plan Problem List: (1) CAD (coronary artery disease) (2) S/P CABG x 3 (3) HTN (hypertension) (4) DM (diabetes mellitus) (5) HLD (hyperlipidemia) (6) CKD (chronic kidney disease) (7) Anxiety (8) Urinary retention Assessment and Plan 1) MVCAD s/p CABG POD #4 (ROACH to LAD, SVG to ramus, SVG to PDA) 2) Continue ASA/BB/Statin/Amio 3) Would avoid Celebrex composite assembler with ischemic heart disease 4) Ambulate as possible, IS to bedside 5) Follow up with Dr. Gant on discharge Nakul Valera DO Oct 19, 2016 10:02
--- NOTE | 2016-10-19 10:19 | RADRPT ---
EXAM DATE/TIME: 10/19/2016 09:55 [facility] COMPARISON: CHEST SINGLE AP, October 16, 2016, 3:33. INDICATIONS : Rule out pneumonia, short of breath. MEDICAL HISTORY : Myocardial infarction. SURGICAL HISTORY : Coronary artery stent. ENCOUNTER: Initial ACUITY: 4 - 6 days PAIN SCORE: 0/10 LOCATION: Bilateral chest FINDINGS: A single view of the chest demonstrates interval removal of left thoracostomy tube. Right IJ catheter has been removed. Lungs are hypoinflated with bibasilar atelectatic changes, left greater than right . Possible associated small left-sided effusion. Findings are basically stable. Accounting for low vo lumes, heart size is borderline but well compensated. Osseous structures are intact with some degener ative spurring of the thoracolumbar spine. Median sternotomy wires are intact. CONCLUSION: 1. Interval removal of left thoracostomy tube and right IJ central venous catheter. No pneumothorax. 2. Hypoinflation with bibasilar atelectatic changes, left greater than right. There may be an associa you left-sided effusion. This is basically stable. Ashu Martin MD on October 19, 2016 at 10:14 Board Certified Radiologist. This report was verified electronically.
--- NOTE | 2016-10-19 14:52 | HHI.FF ---
Face to Face Verification Diagnosis: (1) HTN (hypertension) (2) DM (diabetes mellitus) (3) CKD (chronic kidney disease) (4) S/P CABG x 3 (5) Urinary retention Home Health Nursing Order: Signs/symptoms of disease process Diabetic education Wound care and dressing changes Instructions: Incentive spirometry Q1 hr x 10, while awake, also use acapella device hourly whole awake Sternal Breast Bone Precautions: NO pushing or pulling, ( pt must use sternal pillow to support chest with all activities and with coughing ( takes up to 3 months breast bone to heal ) Daily incision care: ok to shower daily, no tub bath. Wash all incisions with liquid dial soap, clean wash cloth to each site, rinse and pat dry. Observe for any signs of infection, such as drainage which is dark yellow, gallego, green or foul smelling. Immediately report to the surgeon any drainage from the chest incision, or legs, and for any abnormal drainage from the chest tube sites. Notify surgeon if any temp >101.5 degrees F. When specialty dressing removed/ or if you do not have one, continue to shower daily as above, then rinse and pat incision dry and paint with betadine daily x 5 days. Allow steri strips to fall off if you have any. Avoid lotions, creams, salves, oils, etc. for the first month Please see attached forms for additional instructions regarding post Open Heart specialty wound vacuum dressings. VILMA or Prevena , Dressing to be removed by Nursing staff on ___10/22/16____ For Dr. Kc patients , please obtain CBC, BMP, PA & Lat CXR in 2 weeks, results to Dr. Kc ( prescription will be given) ( ) (Tele: [phone]) , F/U appointment: as per PA instructions: PCP in 2 weeks, CV surgeon 2 weeks, Transportation Technician 3-4 weeks For any questions regarding incisions/ dressing / meds / post op care or above Symptoms, Wednesday 8am-5pm Heart & Vascular Surgery Office ( Dr. Staples & Dr. Kc), After Hours / Nights (5pm -8am) Weekends and Holidays Please call [facility] ([facility]) Charge Nurse Heart and Vascular Surgery patients *Special attention to sternal dressing Mandatory frequency Assess and evaluation, 4 days in a row The next week 3X week 2 times a week for 4 weeks 1 time a week for 5 weeks Schedule Heart and Vascular patients for full 60 day certification period Initial visit Review Open Heart Surgery Discharge Instructions (Sternal precautions, Activity, Elastic hose, Incision care, Driving, Incentive spirometry, Smoking, [place], Work and other) Need Betadine to paint incision Medication reconciliation Importance of follow up care/ check on appointments Make calendar record temperature daily When to call [facility] nurse, review instructions, phone list Incentive Spirometry, demonstration Visit 1- Begin discharge instruction for patient family and/ or caregiver using teach back method- Signs and symptoms of infection Disease characteristics Medicines and side effects Foods and nutrition/ appetite Infection control/ hand washing/ hygiene Visit 2- Continue teaching Discharge instructions- include additional information on smoking cessation , sternal dressing (sternal vac) Visit 3- Continue teaching- Cough and deep breathing, incision monitoring. Choose my plate Visit 4- Continue teaching- Discuss limitations Discuss how they are feeling Discuss progress toward goals Remaining visits- continue teaching and monitoring For any questions please call : I have seen patient Patricio BeachJr on 10/19/16. My clinical findings support the need for the requested home health care services because: Deconditioned w/ increased weakness I certify that my clinical findings support that this patient is homebound because: Post-op weakness home Maira Valverde Oct 19, 2016 14:52
[2016-10-19] MEDS ORDERED: OXYGENTANK NAS.CANULA (15:24)
[2016-10-19] MEDS ORDERED: MISC-163 (15:25)
[2016-10-19] MEDS ORDERED: WALKER WHEELS/F1 MIS (15:28)
[2016-10-19] MEDS ORDERED: AMIO200T PO (15:52)
[2016-10-19] MEDS ORDERED: DOCU1CAP39 PO (15:52)
[2016-10-19] MEDS ORDERED: METO-309 PO (15:52)
[2016-10-19] MEDS ORDERED: THERM PO (15:52)
--- NOTE | 2016-10-19 16:16 | PD.CAR.PN ---
CVT Progress Note Subjective/Hospital Course: 66/ male / required a cardiac clearance for Heme + home stool test, had abnormal stress test / EF 60% , underwent cardiac cath by Dr Valera , found to have multivessel disease PMH: CAD/ MS stents x 2 , DM, HLP, HTN, insomnia, prostate CA with radiation surgery : 10/15 CABG X 3 crystalloid + 2500cc/ cellsaver 500cc/ 250cc EBL required gaines cath placement by urology 10/16 no pressors, extubated after surgery yesterday, up in chair on nasal cannula weaned off insulin gtt gaines dc pulm toileting , OOB ambulate on ASA, amiodarone, statin, start BB 10/17/16 No complaints, doing well 10/18/16 No complaints. On 2 liters NC, no BM 10/19 failed 02 walk test, will need 02 at home diuresed well + BM prevena dressing in place plan for dc tomorrow Objective: GENERAL: SKIN: Warm and dry./ prevena dressing to chest , incision intact to leg HEAD: Normocephalic. EYES: No scleral icterus. No injection or drainage. NECK: Supple, trachea midline. No JVD or lymphadenopathy. CARDIOVASCULAR: Regular rate and rhythm without murmurs, gallops, or rubs. RESPIRATORY: Breath sounds equal bilaterally. No accessory muscle use. GASTROINTESTINAL: Abdomen soft, non-tender, nondistended. MUSCULOSKELETAL: No cyanosis, or edema. BACK: Nontender without obvious deformity. No CVA tenderness. Vital Signs Date Time Temp Pulse Resp B/P Pulse Ox O2 Delivery O2 Flow Rate FiO2 10/19/16 15:04 96 Nasal Cannula 2.00 10/19/16 15:04 98.8 84 20 116/62 96 10/19/16 15:00 89 10/19/16 14:00 85 10/19/16 13:22 2.00 10/19/16 13:00 82 10/19/16 12:00 96 Nasal Cannula 2.00 10/19/16 12:00 98.7 84 20 118/64 96 10/19/16 12:00 85 10/19/16 11:00 84 10/19/16 10:00 94 10/19/16 09:38 97 Nasal Cannula 2.00 10/19/16 09:29 95 Nasal Cannula 3.00 10/19/16 09:00 96 Nasal Cannula 3.00 10/19/16 09:00 98 10/19/16 08:00 90 10/19/16 07:57 99.9 84 20 120/67 96 10/19/16 07:56 96 Nasal Cannula 4.00 10/19/16 07:00 97 10/19/16 05:00 90 10/19/16 04:00 82 10/19/16 04:00 Nasal Cannula 4.00 10/19/16 03:00 83 10/19/16 03:00 98.4 83 20 116/74 93 10/19/16 02:00 82 10/19/16 01:00 86 10/19/16 00:00 Nasal Cannula 4.00 10/19/16 00:00 86 10/18/16 23:00 88 10/18/16 23:00 98.6 88 16 109/76 96 10/18/16 22:23 95 21 10/18/16 22:00 94 10/18/16 21:30 20 10/18/16 21:00 110 10/18/16 20:00 108 10/18/16 20:00 Nasal Cannula 4.00 10/18/16 19:00 104 10/18/16 19:00 98.7 104 20 114/69 93 10/18/16 18:00 114 10/18/16 17:00 99 Result Diagram: 10/17/16 0555 10/17/1655 Telemetry: NSR (1) CAD (coronary artery disease) (2) S/P CABG x 3 Plan: ASA, statin, BB , amiodarone OOB, ambulate (3) HTN (hypertension) Plan: BB , on rubén at home (4) DM (diabetes mellitus) Plan: insulin SS, diabetic diet HGB A1c 9.5/ consult family life educator (5) HLD (hyperlipidemia) Plan: on statin (6) CKD (chronic kidney disease) Plan: baseline 1.62 now 1.37 (7) Anxiety (8) Urinary retention Plan: gaines removed monitor urine output will need f/u with Dr Zarco urology Maira Valverde Oct 19, 2016 16:16
[2016-10-19] MEDS ORDERED: PERC5TAB12 PO (17:59)
[2016-10-19] MEDS ORDERED: metFORMIN HCL 500 MG TAB PO SCH (18:00)
--- NOTE | 2016-10-19 18:08 | HHI.DS ---
Discharge Summary Admission Date Oct 16, 2016 at 10:23 Discharge Date: Oct 19, 2016 Admitting Diagnosis chest pain (1) HTN (hypertension) Diagnosis: Principal (2) DM (diabetes mellitus) Diagnosis: Principal (3) CAD (coronary artery disease) Diagnosis: Principal (4) CKD (chronic kidney disease) Diagnosis: Principal (5) S/P CABG x 3 Diagnosis: Secondary Procedures Urgent CABG x 3 10/15 ROACH to LAD SVG to Ramus SVG to PDA EVH Brief History 66/ male / required a cardiac clearance for Heme + home stool test, had abnormal stress test / EF 60% , underwent cardiac cath by Dr Valera , found to have multivessel disease PMH: CAD/ [place] stents x 2 , DM, HLP, HTN, insomnia, prostate CA with radiation surgery : 10/15 CABG X 3 crystalloid + 2500cc/ cellsaver 500cc/ 250cc EBL required gaines cath placement by urology CBC/BMP: 10/17/16 0555 10/17/16 0555 Significant Findings Laboratory Tests Test 10/17/16 05:55 White Blood Count 13.8 TH/MM3 (4.0-11.0) Red Blood Count 3.34 MIL/MM3 (4.50-5.90) Hemoglobin 9.2 GM/DL (13.0-17.0) Hematocrit 28.8 % (39.0-51.0) Neutrophils (%) (Auto) 82.6 % (16.0-70.0) Neutrophils # (Auto) 11.4 TH/MM3 (1.8-7.7) Monocytes # (Auto) 1.0 TH/MM3 (0-0.9) Blood Urea Nitrogen 26 MG/DL (7-18) Creatinine 1.38 MG/DL (0.60-1.30) Estimat Glomerular Filtration 51 ML/MIN (>89) Rate Random Glucose 108 MG/DL (74-106) Imaging Last Impressions Chest X-Ray 10/19/16 0000 Signed Impressions: Service Date/Time: Wednesday, October 19, 2016 09:55 - CONCLUSION: 1. Interval removal of left thoracostomy tube and right IJ central venous catheter. No pneumothorax. 2. Hypoinflation with bibasilar atelectatic changes, left greater than right. There may be an associated left-sided effusion. This is basically stable. Ashu Martin MD Lower Extremity Ultrasound 10/14/16 0000 Signed Impressions: Service Date/Time: Friday, October 14, 2016 13:17 - CONCLUSION: 1. Greater saphenous vein below the knee are extremely diminutive and difficult to follow. 2. Above the knee, the right greater saphenous measures 2-4 mm but could not be seen just above the knee joint. 3. On the left, greater saphenous measures between 2-5 mm above the knee. Ashu Martin MD Carotid Artery Ultrasound 10/14/16 0000 Signed Impressions: Service Date/Time: Friday, October 14, 2016 12:55 - CONCLUSION: 1. Dense atherosclerotic plaquing throughout both carotid systems. 2. This is most severe in the distal left common carotid artery were velocities approach 150 cm/s. This may be indicative of a moderate stenosis in this region. No significant stenosis identified in the internal carotid arteries. Antegrade flow in both vertebrals. Ashu Martin MD PE at Discharge GENERAL: SKIN: Warm and dry./ prevena to chest / incision intact to leg HEAD: Normocephalic. EYES: No scleral icterus. No injection or drainage. NECK: Supple, trachea midline. No JVD or lymphadenopathy. CARDIOVASCULAR: Regular rate and rhythm without murmurs, gallops, or rubs. RESPIRATORY: Breath sounds equal bilaterally. No accessory muscle use. GASTROINTESTINAL: Abdomen soft, non-tender, nondistended. MUSCULOSKELETAL: No cyanosis, or edema. BACK: Nontender without obvious deformity. No CVA tenderness. Hospital Course surgery : 10/15 CABG X 3 crystalloid + 2500cc/ cellsaver 500cc/ 250cc EBL required gaines cath placement by urology 10/16 no pressors, extubated after surgery yesterday, up in chair on nasal cannula weaned off insulin gtt gaines dc pulm toileting , OOB ambulate on ASA, amiodarone, statin, start BB 10/17/16 No complaints, doing well 10/18/16 No complaints. On 2 liters NC, no BM 10/19 failed 02 walk test, will need 02 at home diuresed well + BM prevena dressing in place plan for dc tomorrow Pt Condition on Discharge: Good Discharge Disposition: Disch w/ Home Health Serv Discharge Instructions DIET: Follow Instructions for: Heart Healthy Diet, Diabetic Diet Activities you can perform: Shower Only-No Bath Activities to avoid: Strenuous Activity, Driving Additional Activity Instructio: no lifting >8lbs or gallon of milk Follow up Referrals: Cardiology Cardiology PCP Follow-up Surgical Surgical New Medications: 3-in-1 Bedside Toilet (3-in-1 Bedside Toilet) 1 Mis Mis 1 EA .ROUTE DIRECTED #1 EA Oxygen tank (Oxygen tank) 1 Ea Tank 2 LITER THUY.CANULA CONTINUOUS Oxygen Concentrator Portable Gaseous 2 L/min via Nasal Cannula Continuous For 99 months HYPOXEMIA PREVENTION #1 CYLINDER Walker with Front Wheels (Walker with Front Wheels) 1 Mis Mis 1 EA .ROUTE DIRECTED #1 Ref 0 EA Amiodarone (Amiodarone) 200 Mg Tab 200 MG PO Q12HR heart rhythm #28 Ref 0 TAB Docusate Sodium (Dok) 100 Mg Cap 100 MG PO BID Constipation #60 CAP Metoprolol Tartrate (Lopressor) 50 Mg Tab 50 MG PO BID Blood Pressure Management #60 Ref 2 TAB Multiple Vitamins W/ Minerals (Thera M Plus) 1 Tab 1 TAB PO DAILY multi vitamin #30 TAB Continued Medications: Aspirin DR (Aspir-81) 81 Mg Tabdr Empagliflozin (Jardiance) 25 Mg Tab 25 MG PO DAILY Blood Sugar Management #30 Ref 0 TAB Hydrochlorothiazide (Hydrochlorothiazide) 12.5 Mg Cap 12.5 MG PO BID #60 Ref 0 CAP Insulin Aspart Inj (Novolog Inj) 1,000 Unit/10 Ml Vial 0 SQ DIRECTED Sliding Scale as directed. Blood Sugar Management #10 Ref 0 ML Insulin Glargine Inj (Lantus Inj) 100 Unit/Ml Inj 25 UNITS SQ HS Oxycodone-Acetaminophen (Percocet) 5-325 mg Tab 1 TAB PO Q6H PRN PAIN Ref 0 TAB Pantoprazole (Pantoprazole) 40 Mg Tab 40 MG PO DAILY Reflux #30 Ref 0 TAB Rosuvastatin (Rosuvastatin) 40 Mg Tab 40 MG PO DAILY Cholesterol Management #30 Ref 0 TAB Sitagliptin-Metformin ER (Janumet Xr) 50-1,000 Mg Tab 1 TAB PO DAILY Blood Sugar Management #30 Ref 0 TAB Zolpidem (Zolpidem) 10 Mg Tab 10 MG PO HS PRN INSOMNIA Ref 0 TAB Discontinued Medications: Celecoxib (Celebrex) 200 Mg Cap 200 MG PO BID Pain Management Ref 0 CAP Enalapril (Enalapril) 20 Mg Tab 20 MG PO DAILY #30 Ref 0 TAB Metoprolol Tartrate (Metoprolol Tartrate) 100 Mg Tab 100 MG PO BID #60 Ref 0 TAB Maira Valverde Oct 19, 2016 18:08
[2016-10-19] MEDS ORDERED: INSULIN DETEMIR 100 UNITS/ML VIAL SQ SCH (21:00)
--- NOTE | 2016-10-20 09:47 | RSPPFT ---
DATE OF PROCEDURE: 10/14/16 COMMENTS: Spirometry demonstrates an FEV1 of 2.0 at 89% of predicted, FVC of 2.5 at 90%, FEF 25-75 is 82%. Flow volume loops appear unremarkable. IMPRESSION: 1. Normal spirometry.
== END 2016-10-19 18:27 | disposition home or self-care (01) | DRG 234 ==
LOC: HDOC 07:37 → HDIC 07:38 → HDOC 10:10 → HDIC 10:10 → HCVR 15:48 → HDOC 10-16 10:21 → HCVR 10-16 10:23 → INTOOBSV 10-16 10:23 → UNDOADMOB 10-16 10:23 → HCVR 10-16 16:36 → HCIN 10-16 16:36 → UNDODISOB 10-19 18:27
PROVIDERS: ADMIT Thoracic Surgery (Cardiothoracic Vascular Surgery); ATTEND Thoracic Surgery (Cardiothoracic Vascular Surgery)
PROC: 4A023N7 Measurement of Cardiac Sampling and Pressure, Left Heart, Percutaneous Approach (ICD-10-PCS; 2016-10-14)
PROC: B211YZZ Fluoroscopy of Multiple Coronary Arteries using Other Contrast (ICD-10-PCS; 2016-10-14)
PROC: 5A1221Z Performance of Cardiac Output, Continuous (ICD-10-PCS; 2016-10-14)
PROC: 021109W Bypass Coronary Artery, Two Arteries from Aorta with Autologous Venous Tissue, Open Approach (ICD-10-PCS; 2016-10-15)
PROC: 06BQ4ZZ Excision of Left Saphenous Vein, Percutaneous Endoscopic Approach (ICD-10-PCS; 2016-10-15)
PROC: 02100Z9 Bypass Coronary Artery, One Artery from Left Internal Mammary, Open Approach (ICD-10-PCS; principal; 2016-10-15 08:41)
DX: I25.110 Atherosclerotic heart disease of native coronary artery with unstable angina pectoris (principal); E11.22 Type 2 diabetes mellitus with diabetic chronic kidney disease; R94.39 Abnormal result of other cardiovascular function study; E66.9 Obesity, unspecified; E78.5 Hyperlipidemia, unspecified; G47.00 Insomnia, unspecified; R33.9 Retention of urine, unspecified; F41.9 Anxiety disorder, unspecified; I12.9 Hypertensive chronic kidney disease with stage 1 through stage 4 chronic kidney disease, or unspecified chronic kidney disease; N18.9 Chronic kidney disease, unspecified; K21.9 Gastro-esophageal reflux disease without esophagitis; Z68.29 Body mass index [BMI] 29.0-29.9, adult; Z79.4 Long term (current) use of insulin; Z87.891 Personal history of nicotine dependence; Z85.46 Personal history of malignant neoplasm of prostate
CPT/HCPCS: 71010; 76937; 80048; 81001; 82948; 83036; 83735; 85014; 85025; 85027; 85610; 85730; 86850; 86900; 86901; 86920; 87641; 93005; 93318; 93454; 93880; 93970; 93998; 94002; 94010; 94150; 94620; 94640; 94664; 94667; 94668; C1769; C1893; C9248; C9399; J0131; J0171; J0690; J1265; J1644; J1815; J1817; J1940; J2150; J2250; J2370; J2405; J2440; J2720; J2765; J2930; J3010; J3370; J3475; J3480; J7030; P9047; Q0163; Q9967

== ENCOUNTER 2017-11-30 04:49 | Emergency (ER) | payer OTHER, MEDICARE ==
[2017-11-30] MEDS: ONDANSETRON HCL 4 MG/2 ML VIAL IV PUSH (05:34)
[2017-11-30] MEDS: MORPHINE SULFATE 4 MG/ML INJ IV PUSH (05:36)
[2017-11-30 05:52] LABS: BILIRUBIN, URINE NEG (NEG); BLOOD, URINE SMALL (NEG); GLUCOSE,URINE 1000 OR GREATER mg/dL (NEG); KETONE, URINE NEG (NEG); NITRITE,URINE NEG (NEG); PH, URINE 5.5 (5.0-8.5); URINE COLOR YELLOW (YELLW/STRAW); URINE LEUKOCYTE ESTERASE NEG (NEG)
[2017-11-30 05:56] LABS: COMMENT (UR) CULT NOT INDICATED; CULTURE IF INDICATED CULT NOT INDICATED; SQUAMOUS EPITHELIAL CELL URINE 0-5 /hpf (0-5); WBC, URINE 0-2 /hpf (0-5)
[2017-11-30] MEDS: DEXAMETHASONE SOD PHOS 4 MG/ML VIAL IV PUSH (06:03)
== END 2017-11-30 06:46 | disposition home or self-care (01) ==
LOC: PHED 04:49
DX: M54.16 Radiculopathy, lumbar region (principal); I25.10 Atherosclerotic heart disease of native coronary artery without angina pectoris; I10 Essential (primary) hypertension; E78.00 Pure hypercholesterolemia, unspecified; J44.9 Chronic obstructive pulmonary disease, unspecified; E11.9 Type 2 diabetes mellitus without complications; Z85.46 Personal history of malignant neoplasm of prostate; Z79.4 Long term (current) use of insulin; Z79.82 Long term (current) use of aspirin
CPT/HCPCS: 72131; 81001; 96374; 96375; 99284-25

== ENCOUNTER 2017-12-10 07:30 | Emergency (ER) | END 2017-12-10 08:15 | disposition home or self-care (01) | DX: M54.5 Low back pain (principal); M54.16 Radiculopathy, lumbar region; M79.605 Pain in left leg; E11.9 Type 2 diabetes mellitus without complications; I10 Essential (primary) hypertension; E78.00 Pure hypercholesterolemia, unspecified; J44.9 Chronic obstructive pulmonary disease, unspecified; Z79.4 Long term (current) use of insulin; Z79.01 Long term (current) use of anticoagulants; Z85.46 Personal history of malignant neoplasm of prostate; Z86.79 Personal history of other diseases of the circulatory system | CPT/HCPCS: 96372; 99283; J1100 ==